=== PATIENT | male | born 1960 | race Caucasian/White ===

== ENCOUNTER 2019-05-14 12:45 | Inpatient (IN) | payer OTHER ==
[2019-05-14] MEDS ORDERED: SODIUM CHLORIDE 0.9% 500 ML 500 ML IV STA (13:24)
[2019-05-14 13:34] LABS: Basophils # (A) 0.2 k/uL (0-0.2); Basophils % (A) 2 %; Eosinophils # (A) 0.1 k/uL (0-0.7); Eosinophils % (A) 1 %; HCT 46.9 % (39.0-53.0); HGB 15.8 gm/dL (13.0-17.5); Lymphocytes % (A) 20 %; MCH 31.1 pg (25.0-35.0); MCHC 33.6 g/dL (31.0-37.0); MCV 92.6 fL (80.0-100.0); Mean Platelet Volume 8.2; Monocytes # (A) 0.6 k/uL (0-1.0); Monocytes % (A) 6 %; Neutrophils # (A) 7.2 k/uL (1.3-7.7); Neutrophils % (A) 70 %; Platelet Count 224 k/uL (150-450); RBC 5.07 m/uL (4.30-5.90); RDW 11.8 % (11.5-15.5); WBC 10.4 k/uL (3.8-10.6)
--- NOTE | 2019-05-14 13:40 | ED ---
General Adult HPI - General Chief complaint: Neuro Symptoms/Deficit Stated complaint: HTN Time Seen by Provider: 05/14/19 13:23 Source: patient Mode of arrival: ambulatory Limitations: no limitations - History of Present Illness Initial comments: Dictation was produced using [employer] dictation software. please excuse any grammatical, word or spelling errors. Chief Complaint: 59-year-old male with past mental history of hypertension presents with right facial weakness. History of Present Illness: Patient is a 59-year-old male presents with right facial weakness since 10 PM this morning. Patient was at the emergency dep artment by his for concerns of stroke. Patient has been having weakness to his entire right face including the eyebrows and eyelids. noted that his right eye was drooping along with right lip drooping. As no history of stroke. He has history of hypertension takes antihypertensive medications. Patient has no other complaints at this time. The ROS documented in this emergency department record has been reviewed and confirmed by me. Those systems with pertinent positive or negative responses have been documented in the HPI. All other systems are other negative and/or noncontributory. PHYSICAL EXAM: General Impression: Alert and oriented x3, not in acute distress HEENT: Normocephalic atraumatic, extra-ocular movements intact, pupils equal and reactive to light bilaterally, mucous membranes moist. Cardiovascular: Heart regular rate and rhythm, S1&S2 audible, no murmurs, rubs or gallops Chest: Lungs clear to auscultation bilaterally, no rhonchi, no wheeze, no rales Abdomen: Bowel sounds present, abdomen soft, non-tender, non-distended, no organomegaly Musculoskeletal: Pulses present and equal in all extremities, no peripheral edema Motor: no focal deficits noted Neurological: Right eyebrow weakness, weakness to resistance of shutting to the right eye. Right mouth droop. Skin: Intact with no visualized rashes Psych: Normal affect and mood ED course: 59-year-old male presents with clinical presentation consistent with Sabillon palsy. Upon arrival are within acceptable limits. CT was ordered. Radiology noted that there is subacute left watershed infarct in the posterior parieto-occipital region. Patient also has a mild punctate lacunar injury to the left caudate nucleus. Code stroke was paged. CT angio was ordered of the head and the neck. His class patient case with Dr. Bob will review patient CT films.Dr. Bob, the stroke doctor reviewed patient's films. He did not recommend TPA administration or neurovascular administration at this time. He does recommend aspirin, Plavix and Lipitor. Patient case was discussed with Dr. Irving of neurology. We only have neurology until [address] Gomez will determine if patient is appropriate for admission to our hospital. Dr. gomez evaluated patient and filling patient was amenable for admission to our hospital. Discussed patient case with Dr. Oswald is agreeable to accepting patients care. Patient given aspirin, Plavix and Lipitor. Patient's blood pressure is elevated however given history of stroke we will allow his blood pressure to remain elevated for the time being given that there is concern for possible perfusion issue. Patient started on Sabillon palsy medications including steroids, antivirals and corneal care. EKG interpretation: Ventricular rate 66, normal sinus rhythm,. Interval 152, QS 90, QTC 452. Nonspecific T wave changes in lead 3 and aVF overall this EKG is unremarkable. - Related Data Home Medications Medication Instructions Recorded Confirmed Meclizine [Antivert] 25 mg PO ONCE PRN 05/14/19 05/14/19 Metoprolol Succinate 200 mg PO DAILY 05/14/19 05/14/19 Valsartan/Hydrochlorothiazide 1 tab PO DAILY 05/14/19 05/14/19 [Valsartan-Hctz 160-25 mg Tab] Allergies Allergy/AdvReac Type Severity Reaction Status Date / Time No Known Allergies Allergy Verified 05/14/19 14:14 Review of Systems ROS Statement: Those systems with pertinent positive or pertinent negative responses have been documented in the HPI. ROS Other: All systems not noted in ROS Statement are negative. Past Medical History Past Medical History: Hypertension History of Any Multi-Drug Resistant Organisms: None Reported Past Surgical History: No Surgical Hx Reported Past Psychological History: No Psychological Hx Reported Smoking Status: Former smoker Past Alcohol Use History: Occasional Past Drug Use History: None Reported General Exam Limitations: no limitations Course Vital Signs 05/14/19 05/14/19 05/14/19 12:56 13:15 13:30 Temperature 98.2 F Pulse Rate 75 73 61 Respiratory 18 15 16 Rate Blood Pressure 204/100 208/106 204/108 O2 Sat by Pulse 95 Oximetry 05/14/19 05/14/19 05/14/19 14:00 14:15 14:30 Temperature Pulse Rate 69 84 Respiratory 15 17 Rate Blood Pressure 164/90 158/95 197/108 O2 Sat by Pulse 97 Oximetry Medical Decision Making - Lab Data Result diagrams: 05/14/19 13:20 05/14/19 13:20 Lab Results 05/14/19 05/14/19 05/14/19 Range/Units 13:20 13:20 13:20 WBC 10.4 (3.8-10.6) k/uL RBC 5.07 (4.30-5.90) m/uL Hgb 15.8 (13.0-17.5) gm/dL Hct 46.9 (39.0-53.0) % MCV 92.6 (80.0-100.0) fL MCH 31.1 (25.0-35.0) pg MCHC 33.6 (31.0-37.0) g/dL RDW 11.8 (11.5-15.5) % Plt Count 224 (150-450) k/uL Neutrophils % 70 % Lymphocytes % 20 % Monocytes % 6 % Eosinophils % 1 % Basophils % 2 % Neutrophils # 7.2 (1.3-7.7) k/uL Lymphocytes # 2.0 (1.0-4.8) k/uL Monocytes # 0.6 (0-1.0) k/uL Eosinophils # 0.1 (0-0.7) k/uL Basophils # 0.2 (0-0.2) k/uL PT 9.7 (9.0-12.0) sec INR 0.9 (<1.2) APTT 23.9 (22.0-30.0) sec Sodium 140 (137-145) mmol/L Potassium 4.2 (3.5-5.1) mmol/L Chloride 102 (98-107) mmol/L Carbon Dioxide 26 (22-30) mmol/L Anion Gap 12 mmol/L BUN 23 H (9-20) mg/dL Creatinine 0.69 (0.66-1.25) mg/dL Est GFR (CKD-EPI)AfAm >90 (>60 ml/min/1.73 sqM) Est GFR (CKD-EPI)NonAf >90 (>60 ml/min/1.73 sqM) Glucose 175 H (74-99) mg/dL Calcium 10.0 (8.4-10.2) mg/dL Total Bilirubin 0.7 (0.2-1.3) mg/dL AST 32 (17-59) U/L ALT 41 (21-72) U/L Alkaline Phosphatase 91 (38-126) U/L Troponin I (0.000-0.034) ng/mL Total Protein 8.3 H (6.3-8.2) g/dL Albumin 4.7 (3.5-5.0) g/dL 05/14/19 Range/Units 13:20 WBC (3.8-10.6) k/uL RBC (4.30-5.90) m/uL Hgb (13.0-17.5) gm/dL Hct (39.0-53.0) % MCV (80.0-100.0) fL MCH (25.0-35.0) pg MCHC (31.0-37.0) g/dL RDW (11.5-15.5) % Plt Count (150-450) k/uL Neutrophils % % Lymphocytes % % Monocytes % % Eosinophils % % Basophils % % Neutrophils # (1.3-7.7) k/uL Lymphocytes # (1.0-4.8) k/uL Monocytes # (0-1.0) k/uL Eosinophils # (0-0.7) k/uL Basophils # (0-0.2) k/uL PT (9.0-12.0) sec INR (<1.2) APTT (22.0-30.0) sec Sodium (137-145) mmol/L Potassium (3.5-5.1) mmol/L Chloride (98-107) mmol/L Carbon Dioxide (22-30) mmol/L Anion Gap mmol/L BUN (9-20) mg/dL Creatinine (0.66-1.25) mg/dL Est GFR (CKD-EPI)AfAm (>60 ml/min/1.73 sqM) Est GFR (CKD-EPI)NonAf (>60 ml/min/1.73 sqM) Glucose (74-99) mg/dL Calcium (8.4-10.2) mg/dL Total Bilirubin (0.2-1.3) mg/dL AST (17-59) U/L ALT (21-72) U/L Alkaline Phosphatase (38-126) U/L Troponin I <0.012 (0.000-0.034) ng/mL Total Protein (6.3-8.2) g/dL Albumin (3.5-5.0) g/dL Disposition Clinical Impression: Abnormal CT of brain, Sabillon palsy Disposition: ADMITTED IP TO THIS HOSP Condition: Fair Referrals: Abdirizak Fung MD [Primary Care Provider] - 1-2 days Decision Time: 15:06
[2019-05-14 13:49] LABS: ALT 41 U/L (21-72); AST 32 U/L (17-59); African American GFR (CKD) >90 (>60 ml/min/1.73 sqM); Albumin 4.7 g/dL (3.5-5.0); Alkaline Phosphatase 91 U/L (38-126); Anion Gap 12 mmol/L; Blood Urea Nitrogen 23 mg/dL (9-20); Carbon Dioxide 26 mmol/L (22-30); Chloride 102 mmol/L (98-107); Glucose 175 mg/dL (74-99); Potassium 4.2 mmol/L (3.5-5.1); Sodium 140 mmol/L (137-145); Total Bilirubin 0.7 mg/dL (0.2-1.3); Total Protein 8.3 g/dL (6.3-8.2)
--- NOTE | 2019-05-14 13:52 | CT ---
EXAMINATION TYPE: CT brain wo con DATE OF EXAM: 05/14/2019 COMPARISON: None HISTORY: HTN, Facial droop right side, acute stroke suspected CT DLP: 1111.4 mGycm Automated exposure control for dose reduction was used. TECHNIQUE: CT scan of the head is performed without contrast. FINDINGS: Focal area of hypoattenuation is seen in the watershed zone in the parietal-occipital riki on. There is blurring of the franz-white junction. Early punctate calcifications are seen within the l eft caudate nucleus head. There is no acute intracranial hemorrhage or midline shift identified. Ther e is diffuse ventricular and sulcal prominence consistent with diffuse age-related cerebral atrophy. Old punctate lacunar injury is seen in the left head of the caudate nucleus. The globes are intact. There is mild leftward nasal septal deviation. Scant mucosal thickening is seen within the right maxi llary sinus. Remaining paranasal sinuses and mastoid air cells are well aerated. IMPRESSION: Left watershed infarct in the posterior parietal-occipital region appears subacute by CT. MRI could further assess timing. Old punctate lacunar injury is seen of the left caudate nucleus. Mi ld diffuse age-related cerebral atrophy.
--- NOTE | 2019-05-14 13:54 | XR ---
EXAMINATION TYPE: XR chest 2V DATE OF EXAM: 05/14/2019 COMPARISON: NONE HISTORY: Altered mental status, right facial droop TECHNIQUE: Frontal and lateral views of the chest are obtained. FINDINGS: There are overlying cardiac leads and the patient is rotated. There is no focal air space opacity, pleural effusion, or pneumothorax seen. The cardiac silhouette size is within normal limits . The osseous structures are intact. There is thoracic spondylosis. Right hemidiaphragm is elevated . IMPRESSION: No acute cardiopulmonary process. Elevated right hemidiaphragm.
[2019-05-14 13:58] LABS: INR 0.9 (<1.2); Partial Thromboplastin Time 23.9 sec (22.0-30.0); Prothrombin Time 9.7 sec (9.0-12.0)
[2019-05-14] MEDS ORDERED: ATORVASTATIN 40 MG TAB PO STA (14:26)
[2019-05-14] MEDS ORDERED: ASPIRIN 81 MG PO STA (14:26)
[2019-05-14] MEDS ORDERED: CLOPIDOGREL 75 MG TAB PO STA (14:26)
[2019-05-14] MEDS ORDERED: ARTIFICIAL TEARS-HYPROMELLOSE DROPS 15 ML BTL RIGHT EYE PRN (15:07)
[2019-05-14] MEDS ORDERED: predniSONE 20 MG TAB PO STA (15:08)
--- NOTE | 2019-05-14 15:12 | CT ---
EXAMINATION TYPE: CT angio head neck DATE OF EXAM: 05/14/2019 HISTORY: abnormal CT. Acute stroke suspected. Acute onset neurologic deficit. COMPARISON: CT brain earlier today CT DLP: 1042.8 mGycm. Automated Exposure Control for Dose Reduction was Utilized. TECHNIQUE: CTA scan of the head and neck performed with IV Contrast, patient injected with 65 mL of Isovue 370, axial images are obtained, coronal and sagittal reformatted images are reviewed. Three-D reconstructed images are created on an independent workstation and reviewed. FINDINGS: Carotid/Vascular Structures: Mild peripheral plaque in the aortic arch. Normal three-vessel origin fr om March without significant stenosis. Normal origin right brachiocephalic artery right common caroti d artery. Mild to moderate peripheral calcified plaque in the right carotid bulb extending into proxi mal internal carotid artery without significant stenosis. Patent right external carotid artery withou t significant plaque or stenosis. More severe focal plaque left carotid bulb extending into the proximal internal and external carotid arteries without stenosis greater than 50% clearly seen in the external carotid artery. Suboptimal du e to marked calcified plaque and poor bolus at this level. I suspect significant stenosis proximal in ternal carotid artery at its origin. Review of Griffiths postprocessing suboptimal as there is signifi cant artifact of uncertain etiology. Codominant vertebrobasilar system. Vertebral arteries are patent to basilar junction. No significant focal stenosis or aneurysmal change is seen. There are patent bilateral posterior communicating arter ies . There is patent anterior communicating artery. There is no significant focal stenosis or aneurysmal c hange in the anterior circulation. Other: Few prominent but subcentimeter upper thoracic lymph nodes. Redemonstration of possible subacu te left posterior watershed infarct. [id number] multilevel spurring in the cervical spine. IMPRESSION: 1. More prominent plaque left carotid bulb with suspected significant stenosis at origin left interna l carotid artery cannot be further characterized due to artifact and prominent calcified plaque. Furt her investigation with direct catheter angiogram is advised to better evaluate and possibly treat. 2. No aneurysmal change or significant focal stenosis at level of [place] of [place]. Results communicated to ordering ER physician via telephone at time of dictation.
--- NOTE | 2019-05-14 15:26 | P.CNNES ---
History of Present Illness Consult date: 05/14/19 Requesting physician: Milan Bridges Reason for Consult: Abnormal CT head History of Present Illness: Patient is a 59-year-old male who has history of hypertension, was at work at 11 AM and he noticed his right side of the face was droopy. He talked to his , who checked the blood pressure, which was 230/120. She got concerned and brought him that a hospital. Patient arrived to the hospital at 12:45 PM. Patient had chest x-ray which revealed no acute process. Elevated right hemidiaphragm. His computed tomography scan of the head, showed left watershed infarct of the posterior parietal occipital region, appears subacute by CT. MRI could further assess. Old punctate lacunar injury is seen of the left caudate nucleus. Mild age-related cerebral atrophy. Stroke neurologist store operations associate Dr Bob was contacted by ED staff. Patient was considered not a candidate for TPA due to presence of abnormal CT head and minimal NIHSS. Patient was recommended aspirin, Plavix and Lipitor. Patient had CTA of head and neck, which revealed more prominent plaque left carotid bulb with suspected significant stenosis at the origin of left ICA cannot be further characterized due to artifact and prominent calcified plaque. Further investigation with direct catheter angiogram is advised to better evaluate and possibly treat. No aneurysmal change or significant focal stenosis at the level of [place]. EKG showed normal sinus rhythm with nonspecific T-wave abnormality. Patient's blood test shows normal CBC, PT/PTT, Chem-7. Patient denies any symptoms of stroke prior to 11 AM as described. He denies any headache, neck injury, diabetes. He has hypertension. He does not know about status of cholesterol. Patient states he started smoking at his age 29. By the time he quit at age 49, he was smoking up to 2 packs per day. He denies any alcohol. Patient denies any previous history of strokes or TIA. Review of Systems As above. Otherwise completely unremarkable. Patient is healthy. Past Medical History Past Medical History: Hypertension History of Any Multi-Drug Resistant Organisms: None Reported Past Surgical History: No Surgical Hx Reported Past Psychological History: No Psychological Hx Reported Smoking Status: Former smoker Past Alcohol Use History: Occasional Past Drug Use History: None Reported Medications and Allergies Home Medications Medication Instructions Recorded Confirmed Type Meclizine [Antivert] 25 mg PO ONCE PRN 05/14/19 05/14/19 History Metoprolol Succinate 200 mg PO DAILY 05/14/19 05/14/19 History Valsartan/Hydrochlorothiazide 1 tab PO DAILY 05/14/19 05/14/19 History [Valsartan-Hctz 160-25 mg Tab] Allergies Allergy/AdvReac Type Severity Reaction Status Date / Time No Known Allergies Allergy Verified 05/14/19 14:14 Physical Examination - Vital Signs Vital Signs: Vital Signs Temp Pulse Resp BP Pulse Ox 05/14/19 14:30 84 17 197/108 97 05/14/19 14:15 158/95 05/14/19 14:00 69 15 164/90 05/14/19 13:30 61 16 204/108 05/14/19 13:15 73 15 208/106 05/14/19 12:56 98.2 F 75 18 204/100 95 Intake and Output 05/14/19 05/14/19 05/14/19 06:59 14:59 22:59 Other: Weight 121.109 kg On examination patient is a late middle aged male, in no distress. He is alert and awake fully oriented. His speech and language functions are normal. Mild dysarthria due to right facial weakness. On cranial nerve examination his pupils are round and reactive to light, visual zelaya are full on confrontation. No visual or sensory neglect on double simultaneous stimulation. Extraocular muscles are intact with no nystagmus. His gaze is slightly more easily abducted on the left as compared to the right although has no gaze palsy. He has right facial weakness, almost appears peripheral type with involvement of upper and lower part of the right side of face. His right forehead appears mildly spared. Tongue protrudes to the midline. Palatal elevation and sensation normal. On muscle strength testing there is no pronator drift and the strength is normal in arms and legs distally and proximally. There is no ataxia. Fine motor is normal bilaterally. Reflexes are diminished and plantars downgoing. Sensory to touch is equal with no neglect. Gait deferred. Results - Laboratory Findings CBC and BMP: 05/14/19 13:20 05/14/19 13:20 Abnormal Lab Findings: Abnormal Labs 05/14/19 13:20 BUN 23 H Glucose 175 H Total Protein 8.3 H Assessment and Plan Assessment: * 59-year-old male with hypertension, presented with acute onset of right facial weakness. Symptoms are somewhat suggestive of peripheral right facial weakne ss, however computed tomography scan of the head was abnormal with evidence of subacute stroke involving the left posterior parietal occipital region. CT suggestive of possible subacute infarct, although his symptoms started at 11 AM today. Patient was not a candidate for TPA, due to abnormal computed tomography scan of head and low NIH stroke scale of 2. * Hypertension Plan: * Patient will be started on aspirin 81 mg, Plavix 75 mg. * MRI of the brain to evaluate for an acute stroke. * Vascular surgical consultation for left ICA stenosis. * Fasting lipid panel, hemoglobin A1c. * Neurology coverage not available on the weekend. * Thank you very much for allowing me to participate in care of your patient.
[2019-05-14 16:33] LABS: Cholesterol 225 mg/dL (<200); HDL Cholesterol 46 mg/dL (40-60); LDL Cholesterol,Calculated 138 mg/dL (0-99); Triglycerides 207 mg/dL (<150)
[2019-05-14] MEDS ORDERED: MECLIZINE 25 MG TAB PO PRN (16:40)
--- NOTE | 2019-05-14 16:40 | P.HPIM ---
History of Present Illness H&P Date: 05/14/19 Chief Complaint: Facial drooling This is 59-year-old white male who reported to the emergency room because of right facial drooping that started around 6 AM. He was at work when it started. One of his family members noticed that and asked patient to report to the emergency room. Patient denies any dizziness, no headache, no loss of consciousness, no abdominal pain. He denies any focal or generalized weakness. He reported to the emergency room and was evaluated by neurology. At the time of examination patient is in bed, he denies any distress, he denies any symptom s. He also denies any previous presentations. Review of Systems 10 systems reviewed, pertinent positive and negative findings as in HPI, no chest pain no abdominal pain. Past Medical History Past Medical History: Hypertension History of Any Multi-Drug Resistant Organisms: None Reported Past Surgical History: No Surgical Hx Reported Past Psychological History: No Psychological Hx Reported Smoking Status: Former smoker Past Alcohol Use History: Occasional Past Drug Use History: None Reported Medications and Allergies Home Medications Medication Instructions Recorded Confirmed Type Meclizine [Antivert] 25 mg PO ONCE PRN 05/14/19 05/14/19 History Metoprolol Succinate 200 mg PO DAILY 05/14/19 05/14/19 History Valsartan/Hydrochlorothiazide 1 tab PO DAILY 05/14/19 05/14/19 History [Valsartan-Hctz 160-25 mg Tab] Allergies Allergy/AdvReac Type Severity Reaction Status Date / Time No Known Allergies Allergy Verified 05/14/19 14:14 Physical Exam Vitals: Vital Signs Temp Pulse Resp BP Pulse Ox 05/14/19 14:30 84 17 197/108 97 05/14/19 14:15 158/95 05/14/19 14:00 69 15 164/90 05/14/19 13:30 61 16 204/108 05/14/19 13:15 73 15 208/106 05/14/19 12:56 98.2 F 75 18 204/100 95 Intake and Output 05/14/19 05/14/19 05/14/19 06:59 14:59 22:59 Other: Weight 121.109 kg Constitutional: No acute distress, conversant, pleasant Eyes: Anicteric sclerae ENMT: NC/AT, right facial weakness Neck:Supple, FROM, no masses, or JVD, No carotid bruits; No thyromegaly Lungs: Clear to auscultation, Clear to percussion, Normal respiratory effort, no accessory muscle use Cardiovascular: Heart regular in rate and rhythm, No murmurs, gallops, or rubs no peripheral edema Abdominal: Soft Nontender, nom distended, no guarding, no rebound or rigidity Skin: Normal temperature, tone, texture, turgor Extremities:No digital cyanosis No clubbing, Pedal pulses intact and symmetrical Radial pulses intact and symmetrical Normal gait and station, No calf tenderness Psychiatric: Alert and oriented to person, place and time, Appropriate affect Intact judgement Neuro: Muscles Strength 5/5 in all 4 extremities, Sensation to light touch grossly present throughout, Cranial nerves II-XII grossly intact. No focal sensory deficits Results CBC & Chem 7: 05/14/19 13:20 05/14/19 13:20 Labs: Abnormal Lab Results - Last 24 Hours (Table) 05/14/19 Range/Units 13:20 BUN 23 H (9-20) mg/dL Glucose 175 H (74-99) mg/dL Total Protein 8.3 H (6.3-8.2) g/dL Assessment and Plan Plan: Assessment/Plan: * Acute onset of right facial weakness. CT subacute stroke involving the left posterior parietal occipital region. CT suggestive of possible subacute infarct, not a candidate for TPA,appreciate neurology input , started asa statin and plavix . Vascular surgical consultation for left ICA stenosis. Brain MRI. * Hypertension, essential , not well controlled , continue outpatient medications valsartan/hydrochlorothiazide and metoprolol. * Suspected obstructive sleep apnea: He will need sleep study as an outpatient * Obesity: BMI 38.3, counseled * DVT prophylaxis: Lovenox * Disposition: Home in 1-2 days * Treatment plan discussed with the patient and his at bedside
[2019-05-14 17:07] VITALS: RESP 18
[2019-05-14] MEDS: SODIUM CHLORIDE 0.9% 1,000 ML IV SCH (17:29)
--- NOTE | 2019-05-14 17:34 | ECHOF ---
Referral Reason:CVA MEASUREMENTS -------- HEIGHT: 177.8 cm WEIGHT: 121.1 kg BP: RVIDd: 3.6 cm (< 3.3) IVSd: 1.3 cm (0.6 - 1.1) LVIDd: 4.5 cm (3.9 - 5.3) LVPWd: 1.3 cm (0.6 - 1.1) IVSs: 1.9 cm LVIDs: 2.6 cm LVPWs: 2.1 cm LA Diam: 3.8 cm (2.7 - 3.8) Ao Diam: 3.2 cm (2.0 - 3.7) AV Cusp: 2.1 cm (1.5 - 2.6) MV EXCURSION: 22.646 mm (> 18.000) MV EF SLOPE: 132 mm/s (70 - 150) EPSS: 0.5 cm MV E Moris: 1.01 m/s MV DecT: 198 ms MV A Moris: 0.86 m/s MV E/A Ratio: 1.18 RAP: 5.00 mmHg RVSP: 33.21 mmHg TAPSE: 23.95 mm FINDINGS -------- Sinus rhythm. This was a technically adequate study. The left ventricular size is normal. There is mild concentric left ventricular hypertrophy. Overa ll left ventricular systolic function is normal with, an EF between 55 - 60 %. The diastolic fillin g pattern is normal for the age of the patient 14.94. The right ventricle is mildly enlarged. The left atrial size is normal. The right atrial size is normal. Contrast study was performed with 1 iv injection of 8 ccs of agitated normal saline at rest. Poor paras ge no bubble visulize There is mild aortic valve sclerosis. Trace amount of aortic regurgitation. Mild mitral annular calcification present. Mild mitral regurgitation is present. The tricuspid valve appears structurally normal. Mild tricuspid regurgitation present. Right vent ricular systolic pressure is normal at < 35 mmHg. Trace/mild (physiologic) pulmonic regurgitation. The aortic root size is normal. IVC Not well visulized. There is no pericardial effusion. CONCLUSIONS -------- 1. Sinus rhythm. 2. This was a technically adequate study. 3. The left ventricular size is normal. 4. There is mild concentric left ventricular hypertrophy. 5. Overall left ventricular systolic function is normal with, an EF between 55 - 60 %. 6. The diastolic filling pattern is normal for the age of the patient 14.94 7. The right ventricle is mildly enlarged. 8. The left atrial size is normal. 9. Contrast study was performed with 1 iv injection of 8 ccs of agitated normal saline at rest. Poor image no bubble visulize 10. There is mild aortic valve sclerosis. 11. Trace amount of aortic regurgitation. 12. Mild mitral annular calcification present. 13. Mild mitral regurgitation is present. 14. Mild tricuspid regurgitation present. 15. Right ventricular systolic pressure is normal at < 35 mmHg. 16. Trace/mild (physiologic) pulmonic regurgitation. 17. The aortic root size is normal. 18. IVC Not well visulized. 19. There is no pericardial effusion. CROWN CERAMIST: Rowan Valero RDCS
[2019-05-14] MEDS: valACYclovir 500 MG TAB PO SCH ×2 (17:46→20:59)
[2019-05-15 01:13] LABS: Hemoglobin A1C 7.9 % (4.0-6.0)
[2019-05-15 07:32] LABS: Basophils % (A) 0 %; Eosinophils % (A) 0 %; HCT 47.2 % (39.0-53.0); HGB 15.8 gm/dL (13.0-17.5); Lymphocytes # (A) 1.2 k/uL (1.0-4.8); Lymphocytes % (A) 13 %; MCH 31.6 pg (25.0-35.0); MCHC 33.5 g/dL (31.0-37.0); MCV 94.2 fL (80.0-100.0); Mean Platelet Volume 8.1; Monocytes # (A) 0.5 k/uL (0-1.0); Monocytes % (A) 5 %; Neutrophils # (A) 7.8 k/uL (1.3-7.7); Neutrophils % (A) 81 %; Platelet Count 224 k/uL (150-450); RBC 5.01 m/uL (4.30-5.90); RDW 11.9 % (11.5-15.5); WBC 9.7 k/uL (3.8-10.6)
[2019-05-15 08:11] LABS: ALT 38 U/L (21-72); AST 21 U/L (17-59); African American GFR (CKD) >90 (>60 ml/min/1.73 sqM); Albumin 4.3 g/dL (3.5-5.0); Alkaline Phosphatase 70 U/L (38-126); Anion Gap 10 mmol/L; Blood Urea Nitrogen 16 mg/dL (9-20); Calcium 9.5 mg/dL (8.4-10.2); Carbon Dioxide 28 mmol/L (22-30); Chloride 103 mmol/L (98-107); Cholesterol 213 mg/dL (<200); Glucose 213 mg/dL (74-99); HDL Cholesterol 50 mg/dL (40-60); LDL Cholesterol,Calculated 143 mg/dL (0-99); Potassium 4.4 mmol/L (3.5-5.1); Sodium 141 mmol/L (137-145); Total Bilirubin 0.6 mg/dL (0.2-1.3); Total Protein 7.3 g/dL (6.3-8.2); Triglycerides 99 mg/dL (<150)
[2019-05-15] MEDS: HYDROCHLOROTHIAZIDE 25 MG TAB PO SCH (08:58)
[2019-05-15] MEDS: VALSARTAN 160 MG TAB PO SCH (08:58)
[2019-05-15] MEDS: ASPIRIN 325 MG TAB PO SCH (08:58)
[2019-05-15] MEDS: ATORVASTATIN 40 MG TAB PO SCH (08:58)
[2019-05-15] MEDS: ENOXAPARIN 40 MG/0.4 ML SYRINGE SQ SCH (08:58)
[2019-05-15] MEDS: METOPROLOL SUCCINATE (ER) 100 MG TAB.ER.24H PO SCH (08:58)
[2019-05-15] MEDS: valACYclovir 500 MG TAB PO SCH ×3 (08:59→20:29)
--- NOTE | 2019-05-15 09:47 | P.PN ---
Subjective Progress Note Date: 05/15/19 Principal diagnosis: CVA Patient was seen and examined. No acute events overnight. Patient reports right-sided facial droop that is slowly improving. He denies any chest pain, shortness of breath or palpitations. No nausea vomiting. No fever or chills. He denies any numbness/weakness lasting of the extremities. He denies any difficulty speaking or thinking. He denies any difficulty swallowing. Objective - Vital Signs Vital signs: Vital Signs Temp 97.6 F 05/15/19 04:00 Pulse 82 05/15/19 04:00 Resp 18 05/15/19 04:00 BP 133/81 05/15/19 04:00 Pulse Ox 95 05/15/19 04:00 Intake & Output 05/14/19 05/15/19 05/15/19 18:59 06:59 18:59 Intake Total 240 360 Balance 240 360 Weight 119.7 kg 121 kg Intake: Oral 240 360 Other: Voiding Method Toilet Toilet # Voids 2 - Exam General: [non toxic], [no distress], [appears at stated age] Derm: [warm], [dry] Head: [atraumatic], [normocephalic], [symmetric] Eyes: [EOMI], [no lid lag], [anicteric sclera] Mouth: [no lip lesion], [mucus membranes moist] Cardiovascular: [S1S2 reg], [no murmur], [positive DP pulse bilateral], Lungs: [CTA bilateral], [no rhonchi, no rales] , [no accessory muscle use] Abdominal: [soft], [ nontender to palpation], [no guarding], [no appreciable organomegaly] Ext: [no gross muscle atrophy], [no edema], [no contractures] Neuro: [ CN II-XI grossly intact except right-sided facial droop and difficulty closing right eye, unable to wrinkle right forehead], [no focal neuro deficits] Psych: [Alert], [oriented], [appropriate affect] - Labs CBC & Chem 7: 05/15/19 06:38 05/15/19 06:38 Labs: Abnormal Lab Results - Last 24 Hours (Table) 05/14/19 05/14/19 05/14/19 Range/Units 13:20 16:20 16:20 Neutrophils # (1.3-7.7) k/uL BUN 23 H (9-20) mg/dL Creatinine (0.66-1.25) mg/dL Glucose 175 H (74-99) mg/dL Hemoglobin A1c 7.9 H (4.0-6.0) % Total Protein 8.3 H (6.3-8.2) g/dL Triglycerides 207 H (<150) mg/dL Cholesterol 225 H (<200) mg/dL LDL Cholesterol, Calc 138 H (0-99) mg/dL 05/15/19 05/15/19 Range/Units 06:38 06:38 Neutrophils # 7.8 H (1.3-7.7) k/uL BUN (9-20) mg/dL Creatinine 0.63 L (0.66-1.25) mg/dL Glucose 213 H (74-99) mg/dL Hemoglobin A1c (4.0-6.0) % Total Protein (6.3-8.2) g/dL Triglycerides (<150) mg/dL Cholesterol 213 H (<200) mg/dL LDL Cholesterol, Calc 143 H (0-99) mg/dL Assessment and Plan Assessment: 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 CT shows subacute CVA in the left posterior parieto-occipital lobe. Neurology consulted, recommends CVA workup. CTA head and neck shows significant stenosis of the left internal carotid. Echocardiogram shows EF 55-60% with mild concentric LVH. Plans: Start aspirin and Lipitor. Needs MRI brain but unavailable over the weekend. Patient started on valacyclovir for treatment of Sabillon's palsy, will continue 4 more days of prednisone 50 mg by mouth. Follow PT/OT and ST recommendations. Telemetry monitoring. Advance to neurochecks. Follow neurology recommendations. As seen on CT head. Plans: Management as above. As seen on CTA head and neck. Plans: Follow vascular surgery consultation. BP 133/81. Plans: Continue metoprolol. Continue valsartan. Monitor vitals, a djust medications as necessary. BMI 38.3. Plans: Structured weight loss program. Lipid panel shows total cholesterol 225 with LDL of 138. Plans: Continue Lipitor. [Patient admitted for right-sided facial droop, likely Sabillon's palsy but subacute CVA seen on CT head. Stroke workup underway. Vascular surgery consulted for carotid stenosis. Likely DC in 1-2 days.]
[2019-05-15] MEDS: predniSONE 50 MG TAB PO SCH (11:25)
[2019-05-15] MEDS: SODIUM CHLORIDE 0.9% 1,000 ML IV SCH (12:48)
--- NOTE | 2019-05-15 13:02 | P.CON ---
Consult Note - . Consult date: 05/15/19 Assessment/Plan:: Patient is a 59-year-old male who is admitted to the hospital after family members noted a facial droop and an eyelid droop, both right sided. The patient did notany significant issues. He denied any associated symptoms such as amauro sis fugax, upper her lower extremity motor or sensory deficit. He did undergo imaging which demonstrates findings of a subacute left posterior parietal occipital infarct. Patient denies any previous cerebrovascular accident. He denies any claudication type symptoms and has no history of any significant cardiac disease. Social history significant for approximate [id number] tobacco use history although the patient stopped smoking within the past few years. ALLERGIES: patient has NO KNOWN DRUG ALLERGIES. Past surgical history: Patient denies any previous surgical history Past medical history: Hypertension. My evaluation today revealed the patient to be sitting as bed eating lunch, awake alert and in no apparent distress. Right eyelid and a left facial droop is noted. Tongue was essentially midline. Equal motor strength was noted in the upper extremities. Heart: Was regular without murmur. Neck: Soft without adenopathy or bruit. Lungs: Clear to auscultation bilaterally. Abdomen: Soft/protuberant with normol active bowel sounds. No palpable masses nor tenderness to palpation noted. Review of CAT scan of the brain demonstrates a subacute left occipital/parietal infarct. CT of the carotids was performed which demonstrates suspicion of left ICA stenosis. Degree of stenosis cannot be accurately ascertained due to calcific were followed to the plaque. Review of laboratory values demonstrates a generally increased glucose levels and evidence of dyslipidemia. Impression: #1: Suspicion of hemodynamically severe left ICA stenosis. #2: History of tobacco abuse. #3: Elevated glucose levels, possibly representing previously undiagnosed diabetes mellitus. #4: History of hypertension. Plan: #1: I have taken the liberty of ordering a carotid duplex. #2: Further recommendations pending results of carotid duplex. #3:
--- NOTE | 2019-05-15 16:39 | US ---
EXAMINATION TYPE: US carotid duplex BILAT DATE OF EXAM: 05/15/2019 COMPARISON: NONE CLINICAL HISTORY: carotid stenosis. Carotid stenosis. Abnormal CT EXAM MEASUREMENTS: RIGHT: Peak Systolic Velocity (PSV) cm/sec ----- Right CCA: 48.1 ----- Right ICA: 62.5 ----- Right ECA: 63.8 ICA/CCA ratio: 1.3 RIGHT: End Diastole cm/sec ----- Right CCA: 11.6 ----- Right ICA: 20.7 ----- Right ECA: 12.9 LEFT: Peak Systolic Velocity (PSV) cm/sec ----- Left CCA: 64.4 ----- Left ICA: 101.6 ----- Left ECA: 93.5 ICA/CCA ratio: 1.6 LEFT: End Diastole cm/sec ----- Left CCA: 14.4 ----- Left ICA: 37.0 ----- Left ECA: 14.4 VERTEBRALS (direction of flow): Right Vertebral: Antegrade Left Vertebral: Antegrade Rhythm: Normal Bilateral plaque in the bulbs and Lt ICA. No significant stenosis seen IMPRESSION: There is antegrade flow in the vertebral arteries. The images and measurements suggest 3 0-40% stenosis in both internal carotid arteries. Criteria for Assigning % of Stenosis / Diameter reduction (Estimation based on the indirect measurements of the internal carotid artery velocities (ICA PSV). 1. Normal (no stenosis)=ICA PSV < 125 cm/s: ratio < 2.0: ICA EDV<40 cm/s. 2. Less than 50% stenosis=ICA PSV < 125 cm/s: ratio < 2.0: ICA EDV<40 cm/s. 3. 50 to 69% stenosis=ICA PSV of 125 to 230 cm/s: ration 2.0 ? 4.0: ICA EDV 40-100 cm/s. 4. Greater than 70% stenosis to near occlusion= ICA PSV > 230 cm/s: ratio > 4.0: ICA EDV > 100 cm/s. 5. Near occlusion= ICA PSV velocities may be low or undetectable: variable ratio and ICA EDV. 6. Total occlusion=unable to detect flow.
[2019-05-15] MEDS: ERYTHROMYCIN 5 MG/GM OPHTH OINT 1 GM TUBE RIGHT EYE SCH (20:30)
[2019-05-16 06:46] LABS: Basophils % (A) 0 %; Eosinophils # (A) 0.1 k/uL (0-0.7); Eosinophils % (A) 0 %; HCT 46.4 % (39.0-53.0); HGB 15.7 gm/dL (13.0-17.5); Lymphocytes # (A) 3.1 k/uL (1.0-4.8); Lymphocytes % (A) 27 %; MCHC 33.9 g/dL (31.0-37.0); MCV 94.3 fL (80.0-100.0); Mean Platelet Volume 8.1; Monocytes # (A) 0.8 k/uL (0-1.0); Monocytes % (A) 7 %; Neutrophils # (A) 7.2 k/uL (1.3-7.7); Neutrophils % (A) 64 %; Platelet Count 215 k/uL (150-450); RBC 4.91 m/uL (4.30-5.90); WBC 11.4 k/uL (3.8-10.6)
[2019-05-16 06:55] LABS: ALT 37 U/L (21-72); AST 21 U/L (17-59); African American GFR (CKD) >90 (>60 ml/min/1.73 sqM); Albumin 3.9 g/dL (3.5-5.0); Alkaline Phosphatase 65 U/L (38-126); Anion Gap 7 mmol/L; Blood Urea Nitrogen 17 mg/dL (9-20); Calcium 9.3 mg/dL (8.4-10.2); Carbon Dioxide 33 mmol/L (22-30); Chloride 103 mmol/L (98-107); Glucose 160 mg/dL (74-99); Potassium 4.1 mmol/L (3.5-5.1); Sodium 143 mmol/L (137-145); Total Bilirubin 0.5 mg/dL (0.2-1.3); Total Protein 6.8 g/dL (6.3-8.2)
[2019-05-16] MEDS: ATORVASTATIN 40 MG TAB PO SCH (08:26)
[2019-05-16] MEDS: ASPIRIN 325 MG TAB PO SCH (08:26)
[2019-05-16] MEDS: valACYclovir 500 MG TAB PO SCH (08:27)
[2019-05-16] MEDS: HYDROCHLOROTHIAZIDE 25 MG TAB PO SCH (08:27)
[2019-05-16] MEDS: VALSARTAN 160 MG TAB PO SCH (08:27)
[2019-05-16] MEDS: ENOXAPARIN 40 MG/0.4 ML SYRINGE SQ SCH ×2 (08:27→10:14)
[2019-05-16] MEDS: METOPROLOL SUCCINATE (ER) 100 MG TAB.ER.24H PO SCH (08:27)
[2019-05-16] MEDS: predniSONE 50 MG TAB PO SCH (08:27)
--- NOTE | 2019-05-16 10:43 | P.PN ---
Subjective Progress Note Date: 05/16/19 Principal diagnosis: CVA Patient was seen and examined. No acute events overnight. Patient reports right-sided facial droop that is slowly improving. He also complains of diffi culties in closing his eyes. Problems have not changed much since yesterday. He denies any chest pain, shortness of breath or palpitations. No nausea vomiting. No fever or chills. He denies any numbness/weakness lasting of the extremities. He denies any difficulty speaking or thinking. He denies any difficulty swallowing. Objective - Vital Signs Vital signs: Vital Signs Temp 97.9 F 05/16/19 08:00 Pulse 73 05/16/19 08:00 Resp 18 05/16/19 08:00 BP 163/84 05/16/19 10:01 Pulse Ox 96 05/16/19 08:00 Intake & Output 05/15/19 05/16/19 05/16/19 18:59 06:59 18:59 Intake Total 1090 240 Balance 1090 240 Weight 119.1 kg Intake: IV 10 0.9 10 Oral 1080 240 Other: Voiding Method Toilet # Voids 1 - Exam General: [non toxic], [no distress], [appears at stated age] Derm: [warm], [dry] Head: [atraumatic], [normocephalic], [symmetric] Eyes: [EOMI], [no lid lag], [anicteric sclera] Mouth: [no lip lesion], [mucus membranes moist] Cardiovascular: [S1S2 reg], [no murmur], [positive DP pulse bilateral], Lungs: [CTA bilateral], [no rhonchi, no rales] , [no accessory muscle use] Abdominal: [soft], [ nontender to palpation], [no guarding], [no appreciable organomegaly] Ext: [no gross muscle atrophy], [no edema], [no contractures] Neuro: [ CN II-XI grossly intact except right-sided facial droop and difficulty closing right eye, unable to wrinkle right forehead], [no focal neuro deficits] Psych: [Alert], [oriented], [appropriate affect] - Labs CBC & Chem 7: 05/16/19 06:08 05/16/19 06:08 Labs: Abnormal Lab Results - Last 24 Hours (Table) 05/16/19 05/16/19 Range/Units 06:08 06:08 WBC 11.4 H (3.8-10.6) k/uL Carbon Dioxide 33 H (22-30) mmol/L Glucose 160 H (74-99) mg/dL Assessment and Plan Assessment: 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 CT shows subacute CVA in the left posterior parieto-occipital lobe. Neurology consulted, recommends CVA workup. CTA head and neck shows significant stenosis of the left internal carotid. Echocardiogram shows EF 55-60% with mild concentric LVH. Plans: Start aspirin and Lipitor. Needs MRI brain but unavailable over the weekend. Patient is PT cleared. Patient started on valacyclovir for treatment of Sabillon's palsy, will continue 4 more days of prednisone 50 mg by mouth. Follow OT and ST recommendations. Telemetry monitoring. Advance to neurochecks. Follow neurology recommendations. As seen on CT head. Plans: Management as above. As seen on CTA head and neck. Carotid duplex shows 30-40% stenosis. Plans: Follow vascular surgery consultation. BP 163/84. Plans: Continue metoprolol. Continue valsartan. Monitor vitals, adjust medications as necessary. BMI 37.7. Plans: Structured weight loss program. Lipid panel shows total cholesterol 225 with LDL of 138. Plans: Continue Lipitor. [Patient admitted for right-sided facial droop, likely Sabillon's palsy but subacute CVA seen on CT head. Stroke workup underway. Vascular surgery consulted for carotid stenosis. Likely DC tomorrow.]
[2019-05-16] MEDS: SODIUM CHLORIDE 0.9% 1,000 ML IV SCH (15:58)
[2019-05-16] MEDS: valACYclovir HCL 1,000 MG TABLET PO SCH ×2 (16:15→21:08)
[2019-05-16] MEDS: hydrALAZINE HCL 25 MG TAB PO SCH ×2 (16:15→21:07)
[2019-05-16] MEDS: ERYTHROMYCIN 5 MG/GM OPHTH OINT 1 GM TUBE RIGHT EYE SCH (21:07)
[2019-05-17] MEDS ORDERED: hydrALAZINE HCL 50 MG TAB PO STA (04:30)
[2019-05-17 07:09] LABS: Basophils # (A) 0.1 k/uL (0-0.2); Basophils % (A) 0 %; Eosinophils # (A) 0.1 k/uL (0-0.7); Eosinophils % (A) 0 %; HGB 16.7 gm/dL (13.0-17.5); Lymphocytes # (A) 3.5 k/uL (1.0-4.8); Lymphocytes % (A) 28 %; MCH 32.1 pg (25.0-35.0); MCHC 34.2 g/dL (31.0-37.0); Mean Platelet Volume 7.5; Monocytes # (A) 0.8 k/uL (0-1.0); Monocytes % (A) 7 %; Neutrophils # (A) 7.7 k/uL (1.3-7.7); Neutrophils % (A) 63 %; Platelet Count 221 k/uL (150-450); RBC 5.21 m/uL (4.30-5.90); RDW 11.8 % (11.5-15.5); WBC 12.3 k/uL (3.8-10.6)
[2019-05-17 07:18] LABS: ALT 43 U/L (21-72); AST 23 U/L (17-59); African American GFR (CKD) >90 (>60 ml/min/1.73 sqM); Albumin 4.3 g/dL (3.5-5.0); Alkaline Phosphatase 64 U/L (38-126); Anion Gap 9 mmol/L; Blood Urea Nitrogen 19 mg/dL (9-20); Calcium 9.8 mg/dL (8.4-10.2); Carbon Dioxide 34 mmol/L (22-30); Chloride 100 mmol/L (98-107); Glucose 159 mg/dL (74-99); Sodium 143 mmol/L (137-145); Total Bilirubin 0.6 mg/dL (0.2-1.3); Total Protein 7.6 g/dL (6.3-8.2)
[2019-05-17] MEDS: VALSARTAN 160 MG TAB PO SCH (09:14)
[2019-05-17] MEDS: METOPROLOL SUCCINATE (ER) 100 MG TAB.ER.24H PO SCH (09:14)
[2019-05-17] MEDS: predniSONE 50 MG TAB PO SCH (09:14)
[2019-05-17] MEDS: hydrALAZINE HCL 25 MG TAB PO SCH (09:14)
[2019-05-17] MEDS: valACYclovir HCL 1,000 MG TABLET PO SCH (09:14)
[2019-05-17] MEDS: HYDROCHLOROTHIAZIDE 25 MG TAB PO SCH (09:14)
[2019-05-17] MEDS: ATORVASTATIN 40 MG TAB PO SCH (09:14)
[2019-05-17] MEDS: ASPIRIN 325 MG TAB PO SCH (09:14)
--- NOTE | 2019-05-17 11:26 | MR ---
MR brain without contrast HISTORY: Acute cerebrovascular accident Multiplanar multisequence imaging obtained through the brain and correlated to CT 05/14/2019 There is evidence of prior infarction involving the left parietal lobe however no restricted diffusio n is present to suggest subacute infarct. Focal encephalomalacia present in the head of the caudate o n the left as well as the left parietal lobe cortex, there is corresponding gliosis present, increase d signal on T1 and T2-weighted sequences. There is no hemorrhage or hydrocephalus. Normal vascular fl ow voids. Corpus callosum, pituitary, cervical medullary junction, cerebellopontine angles are normal . Inflammatory change present in the maxillary sinuses, is mucoperiosteal thickening. Orbits show sym metric appearance. IMPRESSION: Chronic infarcts as described. No evidence of subacute infarct.
[2019-05-17 11:59] LABS: Glucose,Whole Blood 216 mg/dL (75-99)
--- NOTE | 2019-05-17 12:20 | P.PN ---
Subjective Progress Note Date: 05/17/19 Patient denies any new neurological symptoms. Patient continues to have right facial weakness, peripheral type. Patient's hemoglobin A1c 7.9. Total cholesterol is 213, LDL 143, HDL 50. Triglycerides 99. Patient is on Lipitor. Patient had a carotid Doppler, which revealed antegrade flow in vertebral arteries. The images and measurements suggest 30-40% stenosis in both ICAs. EKG shows normal sinus rhythm. Patient had an MRI of the brain, which revealed prior infarction involving the left parietal lobe with no restricted diffusion suggest not an acute or subacute, probably a chronic infarct. Patient or his ever denies any history of focal symptoms suggestive of remote stroke. Patient has been started on prednisone 50 mg daily as of 05/15/2019 at 11:25 AM. Patient also has been started on Valtrex 1 g 3 times a day since yesterday 4 p.m. Objective - Vital Signs Vital signs: Vital Signs Temp 98.5 F 05/17/19 08:05 Pulse 73 05/17/19 08:05 Resp 18 05/17/19 08:05 BP 168/89 05/17/19 08:05 Pulse Ox 95 05/17/19 08:05 Intake & Output 05/16/19 05/17/19 05/17/19 18:59 06:59 18:59 Intake Total 1090 10 Balance 1090 10 Weight 117.5 kg Intake: IV 10 10 0.9 10 10 Oral 1080 Other: Voiding Method Toilet # Voids 1 - Exam Patient's mental status, speech and language functions are normal. Cranial ner ves significant for right facial weakness, peripheral type, complete. On muscle strength testing there is no drift and the strength is normal in arms and legs. Reflexes are symmetric and plantars downgoing. - Labs CBC & Chem 7: 05/17/19 06:27 05/17/19 06:27 Labs: Abnormal Lab Results - Last 24 Hours (Table) 05/17/19 05/17/19 05/17/19 Range/Units 06:27 06:27 11:58 WBC 12.3 H (3.8-10.6) k/uL Carbon Dioxide 34 H (22-30) mmol/L Glucose 159 H (74-99) mg/dL POC Glucose (mg/dL) 216 H (75-99) mg/dL Assessment and Plan Assessment: * Right Sabillon's palsy, complete. * History of a remote (silent/asymptomatic) stroke involving the left posterior parietal region, noted on CT/MRI. Patient never had any focal symptoms. * Diabetes type 2 * Hypertension * Obesity Plan: * Patient has been started on prednisone 50 mg daily and Valtrex 1 g 3 times a day. Continue prednisone 50 mg daily for 7 days, then decrease by 10 mg every day until off. * Continue Valtrex 1 g 3 times a day for 7 days. * Agree with starting Lipitor 40 mg, continue aspirin. May take aspirin 81 mg daily indefinitely. * Optimize control of diabetes. * Patient neurologically clear for discharge.
[2019-05-17] MEDS ORDERED: INSULIN ASPART (NovoLOG) 100 UNIT/ML VIAL SQ SCH (12:30)
--- NOTE | 2019-05-17 12:39 | P.DS ---
Providers Date of admission: 05/15/19 12:37 Expected date of discharge: 05/17/19 Attending physician: Zaid Oswald MD Consults: 05/14/19 14:29 Consult Physician Stat Consulting Provider: Radu Gomez Consult Reason/Comments: abnormal CT Do you want consulting provider notified?: Already Contacted 05/15/19 07:42 Consult Physician Stat Consulting Provider: Ruy Ozuna Consult Reason/Comments: carotid stenosis Do you want consulting provider notified?: Yes Primary care physician: [facility] Course: This is 59-year-old white male who reported to the emergency room because of right facial drooping that started around 6 AM. He was at work when it started. One of his family members noticed that and asked patient to report to the emergency room. Patient denies any dizziness, no headache, no loss of consciousness, no abdominal pain. He denies any focal or generalized weakness. He reported to the emergency room and was evaluated by neurology. Patient's right-sided facial droop was thought to be secondary to Sabillon's palsy rather than CVA. CT of the head showed subacute CVA in the left posterior parieto-occipital lobe. Neurology was consulted and recommended CVA workup. CTA of the head and neck showed significant stenosis in the left internal carotid. Echocardiogram showed EF 55-60% with mild concentric LVH. Vascular surgery was consulted for the findings on CTA head and neck and recommended a carotid Doppler. Carotid Doppler showed 30-40% stenosis of bilateral internal carotid arteries. MRI of the brain was done which showed chronic infarcts and no evidence of subacute infarct. Patient was started on 5 days of prednisone along with Valtrex for treatment of Sabillon's palsy. Patient had elevated BP during hospitalization. He was continued on his home dose of metoprolol and valsartan. Hydralazine was added for better control of his blood pressure. Patient was seen and examined. No acute events overnight. Patient reports co ntinued right-sided facial droop, slight improvement from yesterday. He is new onset diabetes mellitus. He denies any chest pain, shortness of breath or palpitations. No nausea or vomiting. No fever or chills. General: [non toxic], [no distress], [appears at stated age] Derm: [warm], [dry] Head: [atraumatic], [normocephalic], [symmetric] Eyes: [EOMI], [no lid lag], [anicteric sclera] Mouth: [no lip lesion], [mucus membranes moist] Cardiovascular: [S1S2 reg], [no murmur], [positive DP pulse bilateral], Lungs: [CTA bilateral], [no rhonchi, no rales] , [no accessory muscle use] Abdominal: [soft], [ nontender to palpation], [no guarding], [no appreciable organomegaly] Ext: [no gross muscle atrophy], [no edema], [no contractures] Neuro: [ CN II-XI grossly intact except right-sided facial droop and difficulty closing right eye, unable to wrinkle right forehead], [no focal neuro deficits] Psych: [Alert], [oriented], [appropriate affect] 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 CT shows subacute CVA in the left posterior parieto-occipital lobe. Neurology consulted, recommends CVA workup. CTA head and neck shows significant stenosis of the left internal carotid. Echocardiogram shows EF 55-60% with mild concentric LVH. Plans: Start aspirin and Lipitor. MRI brain shows chronic infarcts and no subacute. Patient is PT cleared. Patient started on valacyclovir for treatment of Sabillon's palsy, will continue 4 more days of prednisone 50 mg by mouth. Follow OT and ST recommendations. Telemetry monitoring. Advance to neurochecks. Follow neurology recommendations. As seen on CT head. Plans: Management as above. As seen on CTA head and neck. Carotid duplex shows 30-40% stenosis. Plans: Follow vascular surgery consultation. BP 168/89. Plans: Continue metoprolol. Continue valsartan. Monitor vitals, adjust medications as necessary. BMI 37.2. Plans: Structured weight loss program. Lipid panel shows total cholesterol 225 with LDL of 138. Plans: Continue Lipitor. [Patient admitted for right-sided facial droop, likely Sabillon's palsy but subacute CVA seen on CT head. Stroke workup complete. Discussed with social and political studies professor, to obtain a glucometer and diabetic testing supplies. We'll DC today.] Pertinent Studies: CT brain, CTA head and neck, chest x-ray, echocardiogram, carotid Doppler, MRI brain Patient Condition at Discharge: Stable Plan - Discharge Summary Discharge Rx Participant: No New Discharge Prescriptions: New hydrALAZINE HCL [Apresoline] 25 mg PO TID #90 tab Artificial Tears-Hypromellose [Artificial Tear Drops] 2 drops RIGHT EYE QID PRN #1 bottle PRN Reason: Dry Eye(S) Aspirin 325 mg PO DAILY #30 tab Hydrochlorothiazide [Hydrodiuril] 25 mg PO DAILY #30 tab Atorvastatin [Lipitor] 40 mg PO DAILY #30 tab metFORMIN HCL 500 mg PO AC-BID #60 tablet predniSONE See Taper PO DIRECTED 14 Days #40 tab valACYclovir HCL [Valtrex] 1,000 mg PO TID #18 tablet Continue Valsartan/Hydrochlorothiazide [Valsartan-Hctz 160-25 mg Tab] 1 tab PO DAILY Metoprolol Succinate 200 mg PO DAILY Meclizine [Antivert] 25 mg PO ONCE PRN PRN Reason: Congestion Discharge Medication List Meclizine [Antivert] 25 mg PO ONCE PRN 05/14/19 [History] Metoprolol Succinate 200 mg PO DAILY 05/14/19 [History] Valsartan/Hydrochlorothiazide [Valsartan-Hctz 160-25 mg Tab] 1 tab PO DAILY 05/14/19 [History] Artificial Tears-Hypromellose [Artificial Tear Drops] 2 drops RIGHT EYE QID PRN #1 bottle 05/17/19 [Rx] Aspirin 325 mg PO DAILY #30 tab 05/17/19 [Rx] Atorvastatin [Lipitor] 40 mg PO DAILY #30 tab 05/17/19 [Rx] Hydrochlorothiazide [Hydrodiuril] 25 mg PO DAILY #30 tab 05/17/19 [Rx] hydrALAZINE HCL [Apresoline] 25 mg PO TID #90 tab 05/17/19 [Rx] metFORMIN HCL 500 mg PO AC-BID #60 tablet 05/17/19 [Rx] predniSONE See Taper PO DIRECTED 14 Days #40 tab 05/17/19 [Rx] valACYclovir HCL [Valtrex] 1,000 mg PO TID #18 tablet 05/17/19 [Rx] Follow up Appointment(s)/Referral(s): Abdirizak Fung MD [Primary Care Provider] - 1-2 days Zulay Ceron MD [STAFF PHYSICIAN] - 1 Week Patient Instructions/Handouts: Stroke (DC) Activity/Diet/Wound Care/Special Instructions: Diet: Diabetic low salt Follow-up PCP within 3 days of discharge. Follow-up neurology within 1 weeks of discharge. Take all medications as advised. Discharge Disposition: HOME SELF-CARE
[2019-05-17 13:15] VITALS: BP 158/102; PULSE 69; TEMP 98.2
[2019-05-17 13:34] VITALS: BMI 37.1
== END 2019-05-17 14:32 | disposition home or self-care (01) | DRG 74 ==
LOC: EC 12:45 → 3SCARD 15:02 → OBSVTOIN 05-15 12:37
PROVIDERS: ADMIT Internal Medicine; ATTEND Internal Medicine
DX: G51.0 Bell's palsy (principal); E11.65 Type 2 diabetes mellitus with hyperglycemia; I65.23 Occlusion and stenosis of bilateral carotid arteries; J98.6 Disorders of diaphragm; E66.9 Obesity, unspecified; E78.5 Hyperlipidemia, unspecified; I10 Essential (primary) hypertension; G47.33 Obstructive sleep apnea (adult) (pediatric); Z68.37 Body mass index [BMI] 37.0-37.9, adult; Z79.899 Other long term (current) drug therapy; Z86.73 Personal history of transient ischemic attack (TIA), and cerebral infarction without residual deficits; Z87.891 Personal history of nicotine dependence
CPT/HCPCS: 36415; 70450; 70496; 70498; 70551; 71046; 80053; 80061; 83036; 84484; 85025; 85610; 85730; 93005; 93306; 93880; 96360; 99285

== ENCOUNTER 2022-04-02 23:08 | Observation (INO) | payer OTHER ==
[2022-04-02] MEDS ORDERED: LABETALOL 5 MG/ML VIAL MDV IVP STA (23:20)
[2022-04-02] MEDS ORDERED: SODIUM CHLORIDE 0.9% 1,000 ML IV STA ×2 (23:20)
--- NOTE | 2022-04-02 23:42 | ED ---
Neuro HPI - General Chief Complaint: Eye Problems Stated Complaint: unable to see out of LT eye Time Seen by Provider: 04/02/22 23:20 Source: patient, RN notes reviewed, old records reviewed Mode of arrival: ambulatory Limitations: no limitations - History of Present Illness Is the patient presenting with stroke symptoms?: Yes Last Known Well Date: 04/02/22 Last Known Well Time: 19:00 -: hour(s) (4.5) Initial Comments: This is a 62-year-old male DF for evaluation has history of high blood pressure prior history of CVA or TIA. Patient states is worse same symptoms. Vision loss. Patient presents to the hospital at that time and symptoms did resolve. Patient states he laid down to sleep around 7 PM tonight and woke up around 9:30 PM with vision changes in his left eye. Vision loss. States symptoms are improving to a point of blurry vision with history of high blood pressure Location: other (Left eye) History of same: Yes Place: home Severity: moderate Improves With: time Worsens With: none On Anticoagulants: No Context: other (Patient awoke with symptoms tonight) Associated Symptoms: denies other symptoms Treatments Prior to Arrival: none - Related Data Home Medications: Home Medications Medication Instructions Recorded Confirmed Meclizine [Antivert] 25 mg PO ONCE PRN 05/14/19 05/14/19 Metoprolol Succinate 200 mg PO DAILY 05/14/19 05/14/19 Valsartan/Hydrochlorothiazide 1 tab PO DAILY 05/14/19 05/14/19 [Valsartan-Hctz 160-25 mg Tab] Previous Rx's Medication Instructions Recorded Artificial Tears-Hypromellose 2 drops RIGHT EYE QID PRN #1 bottle 05/17/19 [Artificial Tear Drops] Aspirin 325 mg PO DAILY #30 tab 05/17/19 Atorvastatin [Lipitor] 40 mg PO DAILY #30 tab 05/17/19 hydrALAZINE HCL [Apresoline] 25 mg PO TID #90 tab 05/17/19 hydroCHLOROthiazide [Hydrodiuril] 25 mg PO DAILY #30 tab 05/17/19 metFORMIN HCL 500 mg PO AC-BID #60 tablet 05/17/19 predniSONE See Taper PO DIRECTED 14 Days 05/17/19 #40 tab valACYclovir HCL [Valtrex] 1,000 mg PO TID #18 tablet 05/17/19 Allergies/Adverse Reactions: Allergies Allergy/AdvReac Type Severity Reaction Status Date / Time No Known Allergies Allergy Verified 04/02/22 23:15 Review of Systems ROS Statement: Those systems with pertinent positive or pertinent negative responses have been documented in the HPI. ROS Other: All systems not noted in ROS Statement are negative. General Exam Limitations: no limitations Stroke MDM - Lab Data Result diagrams: 04/02/22 23:27 04/02/22 23:27 Lab Results 04/02/22 04/02/22 04/02/22 Range/Units 23:27 23:27 23:27 WBC 8.6 (3.8-10.6) k/uL RBC 5.27 (4.30-5.90) m/uL Hgb 16.0 (13.0-17.5) gm/dL Hct 48.7 (39.0-53.0) % MCV 92.3 (80.0-100.0) fL MCH 30.4 (25.0-35.0) pg MCHC 32.9 (31.0-37.0) g/dL RDW 12.0 (11.5-15.5) % Plt Count 207 (150-450) k/uL MPV 8.7 Neutrophils % 68 % Lymphocytes % 16 % Monocytes % 12 % Eosinophils % 0 % Basophils % 2 % Neutrophils # 5.8 (1.3-7.7) k/uL Lymphocytes # 1.4 (1.0-4.8) k/uL Monocytes # 1.1 H (0-1.0) k/uL Eosinophils # 0.0 (0-0.7) k/uL Basophils # 0.2 (0-0.2) k/uL PT 9.9 (9.0-12.0) sec INR 0.9 (<1.2) APTT 24.9 (22.0-30.0) sec Sodium 140 (137-145) mmol/L Potassium 3.7 (3.5-5.1) mmol/L Chloride 99 (98-107) mmol/L Carbon Dioxide 28 (22-30) mmol/L Anion Gap 13 mmol/L BUN 16 (9-20) mg/dL Creatinine 0.78 (0.66-1.25) mg/dL Est GFR (CKD-EPI)AfAm >90 (>60 ml/min/1.73 sqM) Est GFR (CKD-EPI)NonAf >90 (>60 ml/min/1.73 sqM) Glucose 131 H (74-99) mg/dL Calcium 9.3 (8.4-10.2) mg/dL Total Bilirubin 0.3 (0.2-1.3) mg/dL AST 26 (17-59) U/L ALT 36 (4-49) U/L Alkaline Phosphatase 81 (38-126) U/L Troponin I (0.000-0.034) ng/mL Total Protein 7.3 (6.3-8.2) g/dL Albumin 4.4 (3.5-5.0) g/dL TSH (0.465-4.680) mIU/L 04/02/22 04/03/22 Range/Units 23:27 00:12 WBC (3.8-10.6) k/uL RBC (4.30-5.90) m/uL Hgb (13.0-17.5) gm/dL Hct (39.0-53.0) % MCV (80.0-100.0) fL MCH (25.0-35.0) pg MCHC (31.0-37.0) g/dL RDW (11.5-15.5) % Plt Count (150-450) k/uL MPV Neutrophils % % Lymphocytes % % Monocytes % % Eosinophils % % Basophils % % Neutrophils # (1.3-7.7) k/uL Lymphocytes # (1.0-4.8) k/uL Monocytes # (0-1.0) k/uL Eosinophils # (0-0.7) k/uL Basophils # (0-0.2) k/uL PT (9.0-12.0) sec INR (<1.2) APTT (22.0-30.0) sec Sodium (137-145) mmol/L Potassium (3.5-5.1) mmol/L Chloride (98-107) mmol/L Carbon Dioxide (22-30) mmol/L Anion Gap mmol/L BUN (9-20) mg/dL Creatinine (0.66-1.25) mg/dL Est GFR (CKD-EPI)AfAm (>60 ml/min/1.73 sqM) Est GFR (CKD-EPI)NonAf (>60 ml/min/1.73 sqM) Glucose (74-99) mg/dL Calcium (8.4-10.2) mg/dL Total Bilirubin (0.2-1.3) mg/dL AST (17-59) U/L ALT (4-49) U/L Alkaline Phosphatase (38-126) U/L Troponin I <0.012 (0.000-0.034) ng/mL Total Protein (6.3-8.2) g/dL Albumin (3.5-5.0) g/dL TSH 1.510 (0.465-4.680) mIU/L - NIH Stroke Scale 1a. Level of Consciousness: (0) alert 1b. LOC Questions: (0) answers correctly 1c. LOC Commands: (0) performs tasks correctly 2. Best Gaze: (0) normal 3. Visual: (2) complete hemianopia (Patient initially with complete vision loss which is improving to blurry vision) 4. Facial Palsy: (0) normal symmetrical movement 5a. Motor Arm Left: (0) no drift 5b. Motor Arm Right: (0) no drift 6a. Motor Leg Left: (0) no drift 6b. Motor Leg Right: (0) no drift 7. Limb Ataxia: (0) absent 8. Sensory: (0) normal 9. Best Language: (0) no aphasia 10. Dysarthria: (0) normal 11. Extinction/Inattention: (0) no abnormality - Thrombolytic Inclusion/Exclusion Thrombolytic Exclusion Criteria: Onset of Symptoms Unknown, Symptom Onset > 4.5 Hours (Patient said he went to bed around 7:00pm woke up about 9:30 PM with symptoms, this is > 4.5h) - Radiology Data Radiology results: report reviewed (CT brain and CTA had neck does show 70% stenosis of left ICA), image reviewed - EKG Data -: EKG Interpreted by Me (EKG is sinus rhythm 85 MN 163 QRS 98 QTc 407) Past Medical History Past Medical History: CVA/TIA, Hypertension History of Any Multi-Drug Resistant Organisms: None Reported Past Surgical History: No Surgical Hx Reported Past Anesthesia/Blood Transfusion Reactions: No Reported Reaction Past Psychological History: No Psychological Hx Reported Smoking Status: Former smoker Past Alcohol Use History: Occasional Past Drug Use History: None Reported - Past Family History Father Family Medical History: CVA/TIA Additional Family Medical History / Comment(s): leukemia Mother Additional Family Medical History / Comment(s): MS Course Vital Signs 04/02/22 04/03/22 04/03/22 23:14 00:05 00:12 Temperature 98.1 F Pulse Rate 82 81 86 Respiratory 18 16 16 Rate Blood Pressure 179/90 171/94 137/77 O2 Sat by Pulse 96 97 97 Oximetry - Reevaluation(s) Reevaluation #1: 04/02/22 23:39 Medical record is reviewed Reevaluation #2: 04/02/22 23:39 Patient is outside window for TPA as well as symptoms of complete vision loss does not appear to be acute CVA This is decision is made for no TPA secondary to improvement systems as well as being greater than 4.5 hour since onset - Consultations Consultation #1: I did speak with neuro interventional list at this time patient is not a TPA candidate will start patient on Brillinta and aspirin Critical Care Time Critical Care Time: Yes Total Critical Care Time: 31 Disposition Clinical Impression: Vision loss, left eye, Stroke, Hypertension, Stenosis of left internal carotid artery Disposition: ADMITTED IP TO THIS [facility] Condition: Serious Is patient prescribed a controlled substance at d/c from ED?: No Time of Disposition: 00:20
[2022-04-02 23:44] LABS: Basophils # (A) 0.2 k/uL (0-0.2); Basophils % (A) 2 %; Eosinophils % (A) 0 %; HCT 48.7 % (39.0-53.0); Lymphocytes # (A) 1.4 k/uL (1.0-4.8); Lymphocytes % (A) 16 %; MCH 30.4 pg (25.0-35.0); MCHC 32.9 g/dL (31.0-37.0); MCV 92.3 fL (80.0-100.0); Mean Platelet Volume 8.7; Monocytes # (A) 1.1 k/uL (0-1.0); Monocytes % (A) 12 %; Neutrophils # (A) 5.8 k/uL (1.3-7.7); Neutrophils % (A) 68 %; Platelet Count 207 k/uL (150-450); RBC 5.27 m/uL (4.30-5.90); WBC 8.6 k/uL (3.8-10.6)
--- NOTE | 2022-04-02 23:57 | CT ---
EXAM: CT Angiography Head With Intravenous Contrast CLINICAL HISTORY: ITS.REASON CT Reason: Neuro deficit, acute, stroke suspected TECHNIQUE: Axial computed tomographic angiography images of the head with intravenous contrast. CTDI is 35.83 mGy and DLP is 927 mGy-cm. This CT exam was performed using one or more of the following dose reduction techniques: automated exposure control, adjustment of the mA and/or kV according to patient size, and/or use of iterative reconstruction technique. MIP reconstructed images were created and reviewed. COMPARISON: No relevant prior studies available. FINDINGS: Right internal carotid artery: No acute findings. Intracranial segment is patent with no significant stenosis. No aneurysm. Right anterior cerebral artery: Unremarkable. No occlusion or significant stenosis. No aneurysm. Right middle cerebral artery: Unremarkable. No occlusion or significant stenosis. No aneurysm. Right posterior cerebral artery: Unremarkable. No occlusion or significant stenosis. No aneurysm. Right vertebral artery: Unremarkable as visualized. Left internal carotid artery: No acute findings. Intracranial segment is patent with no significant stenosis. No aneurysm. Left anterior cerebral artery: Unremarkable. No occlusion or significant stenosis. No aneurysm. Left middle cerebral artery: Unremarkable. No occlusion or significant stenosis. No aneurysm. Left posterior cerebral artery: Unremarkable. No occlusion or significant stenosis. No aneurysm. Left vertebral artery: Unremarkable as visualized. Basilar artery: Unremarkable. No occlusion or significant stenosis. No aneurysm. IMPRESSION: Negative CT angiogram of the head. EXAM: CT Angiography Neck With Intravenous Contrast CLINICAL HISTORY: ITS.REASON CT Reason: Neuro deficit, acute, stroke suspected TECHNIQUE: Axial computed tomographic angiography images of the neck with intravenous contrast. CTDI is 35.83 mGy and DLP is 927 mGy-cm. This CT exam was performed using one or more of the following dose reduction techniques: automated exposure control, adjustment of the mA and/or kV according to patient size, and/or use of iterative reconstruction technique. MIP reconstructed images were created and reviewed. COMPARISON: No relevant prior studies available. FINDINGS: VASCULATURE: Right common carotid artery: Unremarkable. No significant stenosis. No dissection or occlusion. Right internal carotid artery: Mild to moderate calcified atherosclerotic disease of the carotid bifurcation. Extracranial segment is patent with no significant stenosis. No dissection or occlusion. Right external carotid artery: Unremarkable. No occlusion. Right vertebral artery: Unremarkable. No significant stenosis. No dissection or occlusion. Left common carotid artery: Unremarkable. No significant stenosis. No dissection or occlusion. Left internal carotid artery: Moderate to heavy atherosclerotic plaque of the carotid bifurcation with small intimal flap and 70% stenosis of the proximal ICA. Extracranial segment is patent with no significant stenosis. Left external carotid artery: Unremarkable. No occlusion. Left vertebral artery: Unremarkable. No significant stenosis. No dissection or occlusion. NECK: Bones/joints: No acute fracture. No dislocation. Soft tissues: Right thyroid nodule. No mass. CAROTID STENOSIS REFERENCE USING NASCET CRITERIA: % ICA stenosis = (1 - narrowest ICA diameter/diameter of distal cervical ICA) x 100. Mild - <50% stenosis. Moderate - 50-69% stenosis. Severe - 70-94% stenosis. Near occlusion - 95-99% stenosis. Occluded - 100% stenosis. IMPRESSION: 70% stenosis of the proximal left ICA with small intimal flap.
--- NOTE | 2022-04-03 | CT ---
EXAM: CT Head Without Intravenous Contrast CLINICAL HISTORY: ITS.REASON CT Reason: Neuro deficit, acute, stroke suspected TECHNIQUE: Axial computed tomography images of the head/brain without intravenous contrast. CTDI is 0 mGy and DLP is 0 mGy-cm. This CT exam was performed using one or more of the following dose reduction techniques: automated exposure control, adjustment of the mA and/or kV according to patient size, and/or use of iterative reconstruction technique. COMPARISON: No relevant prior studies available. FINDINGS: Brain: Remote ischemic injury of the left temporal and occipital lobe with encephalomalacia and gliosis. No hemorrhage. No significant white matter disease. No edema. Ventricles: Unremarkable. No ventriculomegaly. Bones/joints: Unremarkable. No acute fracture. Soft tissues: Bilateral proptosis with proliferation of intraorbital fat. Sinuses: Unremarkable as visualized. No acute sinusitis. Mastoid air cells: Unremarkable as visualized. No mastoid effusion. IMPRESSION: No evidence of acute intracanal pathology. Bilateral proptosis with proliferation of intraorbital fat, which can be seen with thyroid ophthalmopathy in the setting of Graves' disease.
[2022-04-03 00:01] LABS: INR 0.9 (<1.2); Partial Thromboplastin Time 24.9 sec (22.0-30.0); Prothrombin Time 9.9 sec (9.0-12.0)
[2022-04-03 00:13] LABS: ALT 36 U/L (4-49); AST 26 U/L (17-59); African American GFR (CKD) >90 (>60 ml/min/1.73 sqM); Albumin 4.4 g/dL (3.5-5.0); Alkaline Phosphatase 81 U/L (38-126); Anion Gap 13 mmol/L; Blood Urea Nitrogen 16 mg/dL (9-20); Calcium 9.3 mg/dL (8.4-10.2); Carbon Dioxide 28 mmol/L (22-30); Chloride 99 mmol/L (98-107); Glucose 131 mg/dL (74-99); Non-African American GFR(CKD) >90 (>60 ml/min/1.73 sqM); Potassium 3.7 mmol/L (3.5-5.1); Sodium 140 mmol/L (137-145); Total Bilirubin 0.3 mg/dL (0.2-1.3); Total Protein 7.3 g/dL (6.3-8.2)
[2022-04-03] MEDS ORDERED: TICAGRELOR 90 MG TAB PO STA (00:57)
[2022-04-03] MEDS ORDERED: ASPIRIN 325 MG TAB PO STA (00:57)
--- NOTE | 2022-04-03 01:15 | XR ---
EXAM: XR Chest, 2 Views CLINICAL HISTORY: ITS.REASON XR Reason: altered mental status TECHNIQUE: Frontal and lateral views of the chest. COMPARISON: No relevant prior studies available. FINDINGS: Lungs: Mild to moderate peribronchial thickening of the central and lower lobe bronchi. No consolidation. Pleural space: Unremarkable. No pneumothorax. Heart: Unremarkable. No cardiomegaly. Mediastinum: Unremarkable. Bones/joints: Unremarkable. IMPRESSION: Findings concerning for bronchitis, which may be of infectious or inflammatory etiologies. No consolidation.
[2022-04-03] MEDS ORDERED: ONDANSETRON 4 MG/2 ML VIAL IVP PRN (04:40)
[2022-04-03] MEDS ORDERED: DOCUSATE 100 MG CAP PO PRN (04:40)
[2022-04-03] MEDS ORDERED: MELATONIN 3 MG TABLET PO PRN (04:40)
[2022-04-03] MEDS ORDERED: ACETAMINOPHEN TAB 325 MG TAB PO PRN (04:40)
[2022-04-03] MEDS ORDERED: ALPRAZolam 0.25 MG TAB PO PRN (04:40)
[2022-04-03] MEDS ORDERED: CALCIUM CARBONATE 500 MG CHEWABLE PO PRN (04:40)
[2022-04-03] MEDS ORDERED: NALOXONE 0.4 MG/ML 1 ML VIAL IV PRN (04:40)
--- NOTE | 2022-04-03 05:01 | P.HPIM ---
History of Present Illness H&P Date: 04/03/22 Chief Complaint: left eye vision loss 62 year old male with DM , HLD, h/o Stroke , hypertension patient comes in due to loss of vision in his left eye. he reports that he was feeling tired around 7 pm and went to sleep that was the last time he was seen normal , then woke up after pm , and noticed loss of vision over his left eye. he waited for little bit at home, he denies any other associated new focal neuro deficits, denies any dizziness, headache, weakness or numbness over hands or feed, denies any speech difficulties or facial asymetry . he found that his bloo d pressure was high and decided to come in for evaluation . he reports close contact with confirmed COVID infection patient (his spouse) he otherwise denies any fever , chills, chest pain or trouble breathing sore throat, cough, URI symptoms abd pain , nausea or vomiting. he denies any falls or head injury . 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 no other complaints at this time in the ED CT of the brain showed no acute pathology , CTA head and neck showed 7 0% stenosis of left ICA case discussed between ED and neurointervention , he is not a candidate for tPa due to > 4.5 hours onset of symptoms. recommendation were made to start him on aspirin and brilinta blood work otherwise unremarkable , COVID testing pending denies smoking, illicit drugs or alcohol Review of Systems Pertinent positives as noted in HPI. All other systems were reviewed and are negative Past Medical History Past Medical History: CVA/TIA, Diabetes Mellitus, Hypertension History of Any Multi-Drug Resistant Organisms: None Reported Past Surgical History: No Surgical Hx Reported Past Anesthesia/Blood Transfusion Reactions: No Reported Reaction Past Psychological History: No Psychological Hx Reported Smoking Status: Former smoker Past Alcohol Use History: Occasional Past Drug Use History: None Reported - Past Family History Father Family Medical History: CVA/TIA Additional Family Medical History / Comment(s): leukemia Mother Additional Family Medical History / Comment(s): MS Medications and Allergies Home Medications Medication Instructions Recorded Confirmed Type Meclizine [Antivert] 25 mg PO ONCE PRN 05/14/19 05/14/19 History Metoprolol Succinate 200 mg PO DAILY 05/14/19 05/14/19 History Valsartan/Hydrochlorothiazide 1 tab PO DAILY 05/14/19 05/14/19 History [Valsartan-Hctz 160-25 mg Tab] Artificial Tears-Hypromellose 2 drops RIGHT EYE QID PRN #1 bottle 05/17/19 Rx [Artificial Tear Drops] Aspirin 325 mg PO DAILY #30 tab 05/17/19 Rx Atorvastatin [Lipitor] 40 mg PO DAILY #30 tab 05/17/19 Rx hydrALAZINE HCL [Apresoline] 25 mg PO TID #90 tab 05/17/19 Rx hydroCHLOROthiazide [Hydrodiuril] 25 mg PO DAILY #30 tab 05/17/19 Rx metFORMIN HCL 500 mg PO AC-BID #60 tablet 05/17/19 Rx predniSONE See Taper PO DIRECTED 14 Days 05/17/19 Rx #40 tab valACYclovir HCL [Valtrex] 1,000 mg PO TID #18 tablet 05/17/19 Rx Allergies Allergy/AdvReac Type Severity Reaction Status Date / Time No Known Allergies Allergy Verified 04/02/22 23:15 Physical Exam Vitals: Vital Signs Temp Pulse Resp BP Pulse Ox 04/03/22 02:29 77 16 146/79 98 04/03/22 00:12 86 16 137/77 97 04/03/22 00:05 81 16 171/94 97 04/02/22 23:14 98.1 F 82 18 179/90 96 Intake and Output 04/02/22 04/02/22 04/03/22 14:59 22:59 06:59 Other: Weight 115.666 kg Constitutional: No acute distress, conversant, pleasant Eyes: Anicteric sclerae, moist conjunctiva, Pupils equal round , left pupil only reactive to indirect light , right pupil is reactive to direct light ENMT: NC/AT Oropharynx clear, no erythema, or exudates Neck: Supple, no masses, or JVD No carotid bruits No thyromegaly Lungs: Clear to auscultation Clear to percussion Normal respiratory effort, no accessory muscle use Cardiovascular: Heart regular in rate and rhythm, No murmurs, gallops, or rubs No peripheral edema Abdominal: Soft Nontender, no guarding, rebound or rigidity Abdomen moving with respiration Normoactive bowel sounds No hepatomegaly, No splenomegaly No palpable mass No abdominal wall hernia noted Skin: Normal temperature, tone, texture, turgor No induration No subcutaneous nodules No rash, lesions No ulcers Extremities: No digital cyanosis No clubbing Pedal pulses intact and symmetrical Radial pulses intact and symmetrical No calf tenderness Psychiatric: Alert and oriented to person, place and time Appropriate affect fair judgement Neuro Muscles Strength 5/5 in all 4 extremities Sensation to light touch grossly present throughout Cranial nerves III-XII grossly intact, , CNII is impaired over the left eye Lymphatics: no palpable cervical or supraclavicular , or inguinal lymph nodes Results CBC & Chem 7: 04/02/22 23:27 04/02/22 23:27 Labs: Abnormal Lab Results - Last 24 Hours (Table) 04/02/22 04/02/22 Range/Units 23:27 23:27 Monocytes # 1.1 H (0-1.0) k/uL Glucose 131 H (74-99) mg/dL Assessment and Plan Assessment: homonymous hemianopia left eye stroke left ICA stenosis 70% plan neuro checks neuro consults fall precautions PT eval CT brain and CT angio of head and neck reviewed ASA , statin , brilinta not a candidate for tpa due to symptoms >4.5 hours permissive hypertension vascular surgery eval for ICA stenosis A1C, lipid panel echocardiogram monitor vital signs chronic conditions DM insulin sliding scale hypertension , hold home meds, permissive hypertension hyperlipidemia , resume statin full code DVT mechanical
[2022-04-03 08:34] LABS: Glucose,Whole Blood 130 mg/dL (70-110)
[2022-04-03] MEDS: INSULIN ASPART (NovoLOG) 100 UNIT/ML VIAL SQ SCH ×4 (08:34→22:01)
[2022-04-03] MEDS: SODIUM CHLORIDE 0.9% 1,000 ML IV SCH ×2 (08:41→10:59)
[2022-04-03] MEDS: TICAGRELOR 90 MG TAB PO SCH ×2 (08:43→22:18)
--- NOTE | 2022-04-03 09:39 | P.GSCN ---
History of Present Illness Consult date: 04/03/22 Reason for Consult: Carotid stenosis Requesting physician: Scottie Suero History of present illness: This is a very pleasant 62-year-old male who presented to the emergency department yesterday evening after he went to bed and woke up and states that he had complete vision loss in the left eye. Patient states he has improvement of his vision however it is still blurry and he is not able to see complete images. He denied any other focal deficits such as slurred speech, extremity weakness, facial drooping, difficulty with memory or thoughts. He has a past medical history of diabetes mellitus, hypertension, and previous CVA. He is a former smoker smoked for about 20 years quit 10 years ago. Patient did come back as positive for COVID-19 infection, his also is positive for COVID-19. Was seen by the total neuro interventionalists and decided that patient was not a candidate for TPA due to timing and improvement of symptoms. Brilinta and aspirin was initiated yesterday. Patient had been on a atorvastatin and now increased to 80 mg daily. Patient's is at the bedside and states in 2009 he was brought into the emergency department for facial drooping and the rectum up for possible CVA. 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 CT of the brain in April 2019 showed subacute left occipital/parietal infarct he also had a CT angiogram of the head and neck, suspicious left ICA stenosis, undeterminable percentage due to plaque. Carotid duplex showed bilateral ICA stenosis approximately 30-40%. Patient had no other follow up outpatient. At this time he continues to have visual change of the left eye, no complaints of right visual disturbances. He denies any other focal deficits at this time. Denies any shortness of breath, chest pain, nausea or vomiting, fevers or chills. States he was coughing yesterday but not today. He is been afebrile. Patient has been hypertensive with blood pressures ranging 120s to 140s over 70s to 110. CT angiogram head and neck: Head reports negative CT angiogram of the head. Neck reports 70% stenosis of the proximal left ICA with small intimal flap Brain CT: No evidence of acute intracranial pathology. Bilateral proptosis with proliferation of intraorbital fat, which can be seen with thyroid opthalmopathy in the setting of Graves' disease Review of Systems A 14 point review systems was completed all pertinent positives and negatives as stated in the HPI. Past Medical History Past Medical History: CVA/TIA, Diabetes Mellitus, Hypertension History of Any Multi-Drug Resistant Organisms: None Reported Past Surgical History: No Surgical Hx Reported Past Anesthesia/Blood Transfusion Reactions: No Reported Reaction Past Psychological History: No Psychological Hx Reported Smoking Status: Former smoker Past Alcohol Use History: Occasional Past Drug Use History: None Reported - Past Family History Father Family Medical History: CVA/TIA Additional Family Medical History / Comment(s): leukemia Mother Additional Family Medical History / Comment(s): MS Medications and Allergies Home Medications Medication Instructions Recorded Confirmed Type Metoprolol Succinate 200 mg PO DAILY 05/14/19 04/03/22 History Valsartan/Hydrochlorothiazide 1 tab PO DAILY 05/14/19 04/03/22 History [Valsartan-Hctz 160-25 mg Tab] Aspirin EC [Ecotrin Low Dose] 81 mg PO DAILY 04/03/22 04/03/22 History amLODIPine 10 mg PO DAILY 04/03/22 04/03/22 History metFORMIN HCL 1,000 mg PO BID 04/03/22 04/03/22 History Allergies Allergy/AdvReac Type Severity Reaction Status Date / Time No Known Allergies Allergy Verified 04/03/22 09:31 Surgical - Exam Vital Signs Temp Pulse Resp BP Pulse Ox 98.1 F 82 18 179/90 96 04/02/22 23:14 04/02/22 23:14 04/02/22 23:14 04/02/22 23:14 04/02/22 23:14 General appearance: The patient is alert, oriented, appears in no acute distress. HET: Head is normocephalic and atraumatic. Pupils are equal and reactive. Neck: Supple without lymphadenopathy. Trachea midline. No audible carotid bruit. Heart: S1 S2. Regular rate and rhythm. Lungs: Clear to auscultation bilaterally. Abdomen: Soft, nontender, nondistended. Extremities: Normal skin color and turgor. No cyanosis, rash, ulceration, clubb ing, or edema. Radial and pedal pulses are 2/4 bilaterally. Neurological: No focal deficits. Strength and sensation are grossly intact. Results - Labs 04/02/22 23:27 04/02/22 23:27 Abnormal Lab Results - Last 24 Hours (Table) 04/02/22 04/02/22 04/03/22 Range/Units 23:27 23:27 05:50 Monocytes # 1.1 H (0-1.0) k/uL Glucose 131 H (74-99) mg/dL Coronavirus (PCR) Detected A (Not Detectd) Diabetes panel 04/02/22 Range/Units 23:27 Sodium 140 (137-145) mmol/L Potassium 3.7 (3.5-5.1) mmol/L Chloride 99 (98-107) mmol/L Carbon Dioxide 28 (22-30) mmol/L BUN 16 (9-20) mg/dL Creatinine 0.78 (0.66-1.25) mg/dL Glucose 131 H (74-99) mg/dL Calcium 9.3 (8.4-10.2) mg/dL AST 26 (17-59) U/L ALT 36 (4-49) U/L Alkaline Phosphatase 81 (38-126) U/L Total Protein 7.3 (6.3-8.2) g/dL Albumin 4.4 (3.5-5.0) g/dL Thyroid panel 04/03/22 Range/Units 00:12 TSH 1.510 (0.465-4.680) mIU/L Calcium panel 04/02/22 Range/Units 23:27 Calcium 9.3 (8.4-10.2) mg/dL Albumin 4.4 (3.5-5.0) g/dL Pituitary panel 04/02/22 04/03/22 Range/Units 23:27 00:12 Sodium 140 (137-145) mmol/L Potassium 3.7 (3.5-5.1) mmol/L Chloride 99 (98-107) mmol/L Carbon Dioxide 28 (22-30) mmol/L BUN 16 (9-20) mg/dL Creatinine 0.78 (0.66-1.25) mg/dL Glucose 131 H (74-99) mg/dL Calcium 9.3 (8.4-10.2) mg/dL TSH 1.510 (0.465-4.680) mIU/L Adrenal panel 04/02/22 Range/Units 23:27 Sodium 140 (137-145) mmol/L Potassium 3.7 (3.5-5.1) mmol/L Chloride 99 (98-107) mmol/L Carbon Dioxide 28 (22-30) mmol/L BUN 16 (9-20) mg/dL Creatinine 0.78 (0.66-1.25) mg/dL Glucose 131 H (74-99) mg/dL Calcium 9.3 (8.4-10.2) mg/dL Total Bilirubin 0.3 (0.2-1.3) mg/dL AST 26 (17-59) U/L ALT 36 (4-49) U/L Alkaline Phosphatase 81 (38-126) U/L Total Protein 7.3 (6.3-8.2) g/dL Albumin 4.4 (3.5-5.0) g/dL - Imaging Comments: CT angiogram head and neck: Head reports negative CT angiogram of the head. Neck reports 70% stenosis of the proximal left ICA with small intimal flap Brain CT: No evidence of acute intracranial pathology. Bilateral proptosis with proliferation of intraorbital fat, which can be seen with thyroid opthalmopathy in the setting of Graves' disease Assessment and Plan Assessment: 1. Symptomatic Left ICA stenosis, 70% per CT angiogram 2. Left vision loss/changes 3. COVID-19 positive 4. Hypertension 5. Former smoker 6. 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 Carotid duplex ordered 2. Continue aspirin, Brilinta and atorvastatin 3. Await further recommendations from neurology 4. Intervention discussed with patient and his who was at the bedside. Will need outpatient follow-up, likely to schedule carotid endarterectomy versus TCAR 5. Further recommendations forthcoming based on clinical course Thank you for this consultation, we will continue to follow. The impression and plan of care has been dictated as directed. Dr. Pulido I performed a history and examination of this patient, discussed the same with the dictator. I agree with the dictator's note ,documented as a scribe. Any additional findings or plans will be noted.
[2022-04-03 12:52] LABS: Glucose,Whole Blood 163 mg/dL (70-110)
[2022-04-03 12:58] LABS: Glucose,Whole Blood 136 mg/dL (70-110)
--- NOTE | 2022-04-03 13:18 | CA ---
Transthoracic Echo Report Name: Bari Alvarenga Age: 62 Gender: M : 1960 Exam Date: 04/03/2022 08:45 Exam Location: [facility] Ht (in): 70 Wt (lb): 255 Ordering Physician: Gilma Simeon MD Attending/Referring Phys: [id number], [employer] Maid Roro Salas RDCS Procedure CPT: Indications: stroke Cardiac Hx: Technical Quality: Fair Contrast 1: Total Dose (mL): Contrast 2: Total Dose (mL): MEASUREMENTS (Male / Female) Normal Values 2D ECHO LV Diastolic Diameter PLAX 4.6 cm 4.2 - 5.9 / 3.9 - 5.3 cm LV Systolic Diameter PLAX 2.7 cm IVS Diastolic Thickness 1.3 cm 0.6 - 1.0 / 0.6 - 0.9 cm LVPW Diastolic Thickness 1.6 cm 0.6 - 1.0 / 0.6 - 0.9 cm LV Relative Wall Thickness 0.7 RV Internal Dim ED PLAX 3.0 cm M-MODE Aortic Root Diameter MM 3.5 cm LA Systolic Diameter MM 5.8 cm LA Ao Ratio MM 1.6 AV Cusp Separation MM 1.8 cm DOPPLER AV Peak Velocity 151.4 cm/s AV Peak Gradient 9.2 mmHg LVOT Peak Velocity 120.7 cm/s LVOT Peak Gradient 5.8 mmHg MV Area PHT 3.4 cm??? Mitral E Point Velocity 105.8 cm/s Mitral A Point Velocity 77.0 cm/s Mitral E to A Ratio 1.4 MV Deceleration Time 222.5 ms TR Peak Velocity 268.0 cm/s TR Peak Gradient 28.7 mmHg Right Ventricular Systolic Press 33.7 mmHg FINDINGS Left Ventricle Mildly increased septal wall thickness. Normal left ventricular systolic function with no obvious regional wall motion abnormalities. Left ventricular ejection fraction is estimated at 55-60 %. Normal left ventricular diastolic filling pattern. Right Ventricle Normal right ventricular size. Right ventricular systolic pressure within normal limits. Right Atrium Normal right atrial size. Left Atrium Mild left atrial dilatation. Mitral Valve Structurally normal mitral valve. Mild mitral annular calcification. Mild mitral regurgitation. Aortic Valve No aortic valve stenosis or regurgitation. Tricuspid Valve Structurally normal tricuspid valve. Mild tricuspid regurgitation. Pulmonic Valve Trace pulmonic regurgitation. Pericardium No pericardial effusion. Aorta Normal size aortic root and proximal ascending aorta. CONCLUSIONS Normal LV size and systolic function. Mild mitral annular calcification and aortic sclerosis. Mild mitral and tricuspid insufficiency. No pericardial effusion Previewed by: Dr. Jomar Melendez MD (Electronically Signed) Final Date: 03 April 2022 13:17
--- NOTE | 2022-04-03 14:11 | P.PN ---
Subjective Progress Note Date: 04/03/22 Principal diagnosis: vision loss He states that his vision improved today but still blurry. It is just affecting the left eye. No nausea or vomiting. No focal weakness or numbness. Objective - Vital Signs Vital signs: Vital Signs Temp 98.6 F 04/03/22 13:25 Pulse 68 04/03/22 13:25 Resp 16 04/03/22 13:25 BP 168/103 04/03/22 13:25 Pulse Ox 96 04/03/22 13:25 FiO2 Intake & Output 04/02/22 04/03/22 04/03/22 18:59 06:59 18:59 Weight 115.666 kg - Exam Constitutional: No acute distress, conversant, pleasant Eyes:Anicteric sclerae, moist conjunctiva, no lid-lag, PERRLA, ENMT: Oropharynx clear, no erythema, exudates Neck: Supple, FROM, no masses, or JVD, No carotid bruits, No thyromegaly Lungs: Clear to auscultation, Clear to percussion, Normal respiratory effort, no accessory muscle use Cardiovascular: Heart regular in rate and rhythm, No murmurs, gallops, or rubs, No peripheral edema Abdominal: Soft, Nontender, no guarding, rebound or rigidity, Normoactive bowel sounds, No hepatomegaly, No splenomegaly, No palpable mass Skin: Normal temperature, tone, texture, turgor, no induration, No subcutaneous nodules, No rash, lesions, No ulcers Extremities: No digital cyanosis, No clubbing, Pedal pulses intact and symmetrical, Radial pulses intact and symmetrical, No calf tenderness Psychiatric: Alert and oriented to person, place and time, appropriate affect, intact judgement Neuro: Muscles Strength 5/5 in all 4 extremities, Sensation to light touch grossly present throughout, Left eye vision loss, rest of CN intact, no focal sensory deficits - Labs CBC & Chem 7: 04/02/22 23:27 04/02/22 23:27 Labs: Abnormal Lab Results - Last 24 Hours (Table) 04/02/22 04/02/22 04/02/22 Range/Units 23:27 23:27 23:27 Monocytes # 1.1 H (0-1.0) k/uL Glucose 131 H (74-99) mg/dL POC Glucose (mg/dL) (70-110) mg/dL Hemoglobin A1c 6.8 H (0.0-6.0) % Coronavirus (PCR) (Not Detectd) 04/02/22 04/03/22 04/03/22 Range/Units 23:29 05:50 08:33 Monocytes # (0-1.0) k/uL Glucose (74-99) mg/dL POC Glucose (mg/dL) 136 H 130 H (70-110) mg/dL Hemoglobin A1c (0.0-6.0) % Coronavirus (PCR) Detected A (Not Detectd) 04/03/22 Range/Units 12:51 Monocytes # (0-1.0) k/uL Glucose (74-99) mg/dL POC Glucose (mg/dL) 163 H (70-110) mg/dL Hemoglobin A1c (0.0-6.0) % Coronavirus (PCR) (Not Detectd) Assessment and Plan Plan: Left eye vision loss likely due to acute stroke with an embolus from the left ICA stenosis 70% neuro checks fall precautions PT eval CT brain and CT angio of head and neck reviewed ASA , statin , brilinta not a candidate for tpa due to symptoms >4.5 hours D/w neuro, will need stat ophthalmology consult, communicated that with the er staff, loan secretary calling office. echocardiogram ok. Left ICA stenosis Vascular consulted, planning intervention outpatient DM A1c 6.8, start insulin sliding scale Hypertension , hold home meds, permissive hypertension Hyperlipidemia , resume statin
--- NOTE | 2022-04-03 14:29 | P.CNNES ---
History of Present Illness Consult date: 04/03/22 Requesting physician: Scottie Suero Reason for Consult: CVA History of Present Illness: Patient is a 62-year-old male with history of hypertension, diabetes, previous TIA, came to the hospital yesterday at 11:08 PM for acute onset of vision loss left eye. Patient states that yesterday he was feeling fine. He took a nap, which is not unusual for him at 7:30 PM. When he woke up at 9:30 PM, he noticed complete vision loss in the left eye. There were no associated symptoms like headache, slurred speech, facial droop, any focal numbness tingling weakness diplopia, or dizziness. Patient came to the ER and arrived at 11:08 PM. Patient's was also present at the time of interview, who concurred with the above. Vital signs on arrival blood pressure 179/90, pulse rate 82 temperature 98.1. Blood test shows normal CBC, PT/PTT, normal CMP. TSH is normal. Coronal virus PCR is positive. Patient's last hemoglobin A1c 7.9 and LDL 143 on 05/15/2019. CT head showed no acute process. Bilateral proptosis with proliferation of intraorbital fat, which can be seen with thyroid ophthalmopathy in the setting of Graves' disease. EKG shows sinus rhythm. CTA of head is reported as "negative". CTA of the neck showed 70% stenosis of the proximal left ICA with small intimal flap. I personally reviewed CT head and CTA of head and neck and agree with the findings. Chest x-ray showed findings concerning for bronchitis, which may be of infectious or inflammatory etiologies. No consolidation. Stroke code was activated, in the ED staff discuss case with the stroke neurologist/neuro intervention. Patient NIH stroke scale was 2 with complete hemianopsia left side. Patient did not receive TPA as it was felt the onset of symptoms were > 4.5 hours and his symptoms of vision loss was improving to naren rred vision on the left. Patient states that his vision has improved about only 20-30%, whereas one completely black at the onset. Patient has been seen by myself on 05/14/2019 when he has presented with acute onset of right facial weakness. He was diagnosed with right Sabillon's palsy. MRI of the brain at that time revealed prior infarction involving the left parietal lobe with no restricted diffusion suggestive of any acute or subacute ischemia. Patient had no previous history of clinical stroke or TIA. Patient was discharged on prednisone. Patient has hyperlipidemia. He was recommended to start aspirin 81 mg and Lipitor 40 mg at that time. Carotid Doppler revealed 30-40% stenosis of both ICA. Vascular surgery consulted the patient at that time. Patient was discharged on aspirin 325 mg daily it appears. Patient has history of smoking started at age 29. By the time he quit smoking at age 49, he was smoking up to 2 packs per day. He is nonsmoker at this time. He denies any alcohol. Patient states that he is fully vaccinated, with the last moderna booster dose he received on 06/13/2021. Patient at present is taking aspirin 81 mg, amlodipine 10 mg, metformin 1000 mg twice a day, metoprolol and valsartan/HCTZ. Review of Systems Eyes: left blurred vision, left loss of vision, denies diplopia, denies pain Ears, nose, mouth and throat: Denies headache, Denies sore throat Cardiovascular: Denies chest pain, Denies shortness of breath Respiratory: Denies cough Gastrointestinal: Denies abdominal pain, Denies diarrhea, Denies nausea, Denies vomiting Musculoskeletal: Denies myalgias Integumentary: Denies pruritus, Denies rash Neurological: Denies numbness, Denies weakness Psychiatric: Denies anxiety, Denies depression Endocrine: Denies fatigue, Denies weight change Hematologic/Lymphatic: Denies easy bruising Allergic/Immunologic: Denies persistent infections Past Medical History Past Medical History: CVA/TIA, Diabetes Mellitus, Hypertension History of Any Multi-Drug Resistant Organisms: None Reported Past Surgical History: No Surgical Hx Reported Past Anesthesia/Blood Transfusion Reactions: No Reported Reaction Past Psychological History: No Psychological Hx Reported Smoking Status: Former smoker Past Alcohol Use History: Occasional Past Drug Use History: None Reported - Past Family History Father Family Medical History: CVA/TIA Additional Family Medical History / Comment(s): leukemia Mother Additional Family Medical History / Comment(s): MS Medications and Allergies Home Medications Medication Instructions Recorded Confirmed Type Metoprolol Succinate 200 mg PO DAILY 05/14/19 04/03/22 History Valsartan/Hydrochlorothiazide 1 tab PO DAILY 05/14/19 04/03/22 History [Valsartan-Hctz 160-25 mg Tab] Aspirin EC [Ecotrin Low Dose] 81 mg PO DAILY 04/03/22 04/03/22 History amLODIPine 10 mg PO DAILY 04/03/22 04/03/22 History metFORMIN HCL 1,000 mg PO BID 04/03/22 04/03/22 History Allergies Allergy/AdvReac Type Severity Reaction Status Date / Time No Known Allergies Allergy Verified 04/03/22 09:31 Physical Examination - Vital Signs Vital Signs: Vital Signs Temp Pulse Resp BP Pulse Ox 04/03/22 09:24 97.6 F 75 16 143/90 97 04/03/22 08:44 98.2 F 72 16 125/110 98 04/03/22 08:43 98.2 F 72 16 125/110 04/03/22 07:30 98.2 F 97 16 131/76 96 04/03/22 05:55 70 16 151/97 95 04/03/22 02:29 77 16 146/79 98 04/03/22 00:12 86 16 137/77 97 04/03/22 00:05 81 16 171/94 97 04/02/22 23:14 98.1 F 82 18 179/90 96 Intake and Output 04/02/22 04/03/22 04/03/22 22:59 06:59 14:59 Other: Weight 115.666 kg Patient is an elderly male, in no acute distress. Patient is alert awake oriented to time place and person. Speech and language functions are normal. Patient can name and repeat very well. No aphasia or dysarthria. Attention, concentration and fund of knowledge is adequate. On cranial nerve examination, pupils are equal, round and reacting to light, with very prominent left APD. His visual zelaya are full on confrontation on the right, but has significant central vision loss in the left eye, cannot count fingers. He has some preserved peripheral vision involving the left upper quadrant and slightly in the inferior quadrant. There is no neglect on double simultaneous stimulation with the right eye. Extraocular muscles are intact with no nystagmus. Face is symmetric, tongue protrudes to the midline. Palatal elevation and sensation normal, hearing and shoulder shrug normal, facial sensation normal. On muscle strength testing, there is no pronator drift and the strength is normal in arms and legs distally and proximally. Deep tendon reflexes are symmetric 1 in the upper limbs at biceps and brachioradialis, 1+ at the knees, 1 at ankles and plantars downgoing bilaterally. Sensory to touch is equal with no neglect on double simultaneous stimulation. Cerebellar function showed no ataxia for [id number] testing. No dysdiadochokinesia. No ataxia for [id number] testing on either side. Tone and bulk of muscles normal. Gait deferred.. On general examination, there is no carotid bruit or murmur, S1-S2 audible. Chest is clear on consultation. Abdomen is soft nontender. No organomegaly, bowel sounds present. Peripheral pulses are present. No edema. Results - Laboratory Findings CBC and BMP: 04/02/22 23:27 04/02/22 23:27 Abnormal Lab Findings: Abnormal Labs 04/02/22 04/02/22 04/03/22 23:27 23:27 05:50 Monocytes # 1.1 H Glucose 131 H POC Glucose (mg/dL) Coronavirus (PCR) Detected A 04/03/22 08:33 Monocytes # Glucose POC Glucose (mg/dL) 130 H Coronavirus (PCR) Assessment and Plan Assessment: * Acute onset of left eye vision loss (noticed on waking up). Probable embolic from left carotid disease. CTA showed 70% stenosis with evidence of intimal flap * Hypertension * Diabetes * Hyperlipidemia * X tobacco use * Acute Covid-19 infection. Plan: * Patient's vision in the left eye has slightly improved, but still significant deficit. * Patient started on dual antiplatelet medication with aspirin and Brilinta. * Vascular surgery has seen the patient. Patient probably will benefit from left CEA because of symptomatic left ICA stenosis. Patient also has a left intimal flap noted on the CTA, which could be thrombogenic. Likewise, presence of acute Covid infection can be associated with hypercoagulable state as well. * Hemoglobin A1c 6.8 * Lipid panel * Carotid Doppler pending. * 2-D echo revealed normal left ventricular size and systolic function with EF 55-60%. Mild mitral annular calcification and aortic sclerosis. * ESR, CRP. * Urgent Ophthalmology consult. * Neurology will follow. Thank you for the consult.
[2022-04-03] MEDS ORDERED: ATORVASTATIN 80 MG TAB PO SCH (21:00)
[2022-04-03 21:34] LABS: Glucose,Whole Blood 131 mg/dL (70-110)
--- NOTE | 2022-04-04 03:13 | CONS ---
CONSULTATION CHIEF COMPLAINT: Poor vision in left eye. HISTORY OF PRESENT ILLNESS: Mr. Alvarenga is a 62-year-old male, who presented today with sudden loss of vision in the left eye beginning yesterday evening. The loss of vision has been constant, and has improved slightly. There is no associated pain or other symptoms. There is no associated headache. There is no associated temporal pain. The symptoms began with complete darkness in the left eye, which has slightly improved, but is still very hazy at this time. REVIEW OF SYSTEMS: The patient denies any dizziness, headache, weakness, or numbness along with any facial asymmetry. MEDICAL HISTORY: History of TIA, diabetes mellitus, hypertension. SURGICAL HISTORY: Denies any ophthalmic surgery. SOCIAL HISTORY: Former smoker. Occasional alcohol use. Denies drug use. FAMILY HISTORY: Significant for leukemia and TIA in his father, and multiple sclerosis in the mother. MEDICATIONS: His home medications include, 1. Meclizine. 2. Metoprolol. 3. Losartan/hydrochlorothiazide. 4. Aspirin. 5. Lipitor. 6. Hydralazine. 7. Metformin. 8. Prednisone. 9. Valacyclovir. ALLERGIES: No known drug allergies. PHYSICAL EXAMINATION: Ophthalmic exam shows visual acuity 20/200 at near in the right eye without correction. Hand motion in the left eye without correction. Intra-ocular pressure is 20 mmHg in both eyes. Anterior examination reveals extraocular movements are full and intact. There is a mild afferent pupillary defect in the left eye. The conjunctiva is white. The cornea is clear. Anterior chamber is within normal limits. There is 1+ nuclear sclerotic cataract in both eyes. Posterior examination is within normal limits in the right eye. Posterior examination of the left eye reveals decreased caliber of veins and arteries along with a whitening of the overall appearance of the retina. This is consistent with an arterial occlusion. ASSESSMENT AND PLAN: 1. Central retinal artery occlusion, left eye. The patient will require stroke evaluation including carotid ultrasound and echocardiogram. Those need to be completed and addressed as needed to help identify a possible embolic source. From an ocular standpoint, I recommend starting brimonidine ophthalmic drops 1 drop in the left eye twice daily to help lower the pressure, which may help perfusion. Unfortunately, the prognosis for central retinal artery occlusion is 4. Outpatient management is recommended to evaluate and treat the potential sequelae. At this time, no further ophthalmic treatment would be necessary. After discharge, I recommend the patient follow up as an outpatient within 1 week at my office. 2. Nonproliferative diabetic retinopathy, mild, bilateral. Retinopathy is mild and not concerning for visual loss at this time. However, I recommend tight blood sugar control and continued followup as an outpatient. 3. Hypertensive retinopathy, bilateral. Recommend blood pressure control. Thank you for allowing me to participate in this patient's care. I recommend follow up as an outpatient within 1 week of discharge in my office. MMODL / IJN: [id number] /
[2022-04-04] MEDS ORDERED: cloNIDine HCL 0.2 MG TAB PO PRN (05:09)
[2022-04-04 06:38] LABS: Glucose,Whole Blood 140 mg/dL (70-110)
[2022-04-04] MEDS: INSULIN ASPART (NovoLOG) 100 UNIT/ML VIAL SQ SCH ×2 (06:55→12:53)
[2022-04-04] MEDS: SODIUM CHLORIDE 0.9% 1,000 ML IV SCH ×2 (06:56→08:49)
[2022-04-04 07:21] LABS: Basophils % (A) 0 %; Eosinophils % (A) 0 %; HCT 46.5 % (39.0-53.0); HGB 15.5 gm/dL (13.0-17.5); Lymphocytes # (A) 1.5 k/uL (1.0-4.8); Lymphocytes % (A) 22 %; MCH 31.2 pg (25.0-35.0); MCHC 33.4 g/dL (31.0-37.0); MCV 93.4 fL (80.0-100.0); Mean Platelet Volume 8.8; Monocytes # (A) 0.6 k/uL (0-1.0); Monocytes % (A) 8 %; Neutrophils # (A) 4.4 k/uL (1.3-7.7); Neutrophils % (A) 67 %; Platelet Count 222 k/uL (150-450); RBC 4.97 m/uL (4.30-5.90); RDW 12.5 % (11.5-15.5); WBC 6.5 k/uL (3.8-10.6)
[2022-04-04 07:53] LABS: ALT 34 U/L (4-49); AST 23 U/L (17-59); African American GFR (CKD) >90 (>60 ml/min/1.73 sqM); Albumin 4.1 g/dL (3.5-5.0); Alkaline Phosphatase 62 U/L (38-126); Anion Gap 10 mmol/L; Blood Urea Nitrogen 9 mg/dL (9-20); Calcium 8.6 mg/dL (8.4-10.2); Carbon Dioxide 27 mmol/L (22-30); Chloride 104 mmol/L (98-107); Glucose 143 mg/dL (74-99); Non-African American GFR(CKD) >90 (>60 ml/min/1.73 sqM); Potassium 3.9 mmol/L (3.5-5.1); Sodium 141 mmol/L (137-145); Total Bilirubin 0.6 mg/dL (0.2-1.3); Total Protein 6.7 g/dL (6.3-8.2)
[2022-04-04] MEDS ORDERED: ASPIRIN 325 MG TAB PO SCH (09:00)
[2022-04-04] MEDS: TICAGRELOR 90 MG TAB PO SCH (09:03)
[2022-04-04 09:14] VITALS: RESP 16; TEMP 98
[2022-04-04 10:45] LABS: Chol/HDL Ratio 3.63 Ratio; LDL Cholesterol,Calculated 78.1 mg/dL (0.0-131.0)
--- NOTE | 2022-04-04 10:58 | P.PN ---
Subjective Progress Note Date: 04/04/22 Principal diagnosis: Left vision loss/changes Patient was seen and examined today as a follow-up. He still complaining of left visual changes with blurred vision. He denies any other focal deficits. No acute changes through the night. He was seen yesterday by ophthalmology, Dr. Santiago which diagnosed him with a central retinal artery occlusion of the left eye. He recommended a stroke evaluation including carotid ultrasound and echocardiogram to identify possible embolic source. Carotid duplex was reviewed with less than 50% bilateral ICA stenosis. Objective - Vital Signs Vital signs: Vital Signs Temp 98.0 F 04/04/22 09:13 Pulse 71 04/04/22 09:13 Resp 16 04/04/22 09:13 BP 146/62 04/04/22 09:13 Pulse Ox 96 04/04/22 09:13 FiO2 Intake & Output 04/03/22 04/04/22 04/04/22 18:59 06:59 18:59 Intake Total 240 Balance 240 Intake: Oral 240 Other: Voiding Method Toilet # Voids 6 - Exam General appearance: The patient is alert, oriented, appears in no acute distress. HET: Head is normocephalic and atraumatic. Pupils are equal and reactive. Left vision loss. Neck: Supple without lymphadenopathy. Trachea midline. No audible carotid bruit. Heart: S1 S2. Regular rate and rhythm. Lungs: Clear to auscultation bilaterally. Abdomen: Soft, nontender, nondistended. Extremities: Normal skin color and turgor. Palpable bilateral radial pulse. Neurological: Left vision loss. Strength and sensation are grossly intact. - Labs CBC & Chem 7: 04/04/22 06:29 04/04/22 06:29 Labs: Abnormal Lab Results - Last 24 Hours (Table) 04/02/22 04/02/22 04/03/22 Range/Units 23:27 23:29 12:51 Glucose (74-99) mg/dL POC Glucose (mg/dL) 136 H 163 H (70-110) mg/dL Hemoglobin A1c 6.8 H (0.0-6.0) % 04/03/22 04/04/22 04/04/22 Range/Units 21:32 06:29 06:36 Glucose 143 H (74-99) mg/dL POC Glucose (mg/dL) 131 H 140 H (70-110) mg/dL Hemoglobin A1c (0.0-6.0) % Assessment and Plan Assessment: 1. Left ICA stenosis, 70% per CT angiogram with discordant findings of less than 50% left ICA stenosis per carotid ultrasound 2. Left vision loss/changes due to central retinal artery occlusion 3. COVID-19 positive 4. Hypertension 5. Former smoker 6. 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 Carotid duplex ordered and reviewed, discordant findings compared to CT angiogram head and neck. However consistent with a former CTA/carotid duplex done in 2019. 2. Continue aspirin, Brilinta and atorvastatin 3. Recommend MRA head and neck, this can be done as an outpatient. Will discuss with neurology if MRI is warranted will order as inpatient 4. Ophthalmology on consult, appreciated their recommendations 5. Await further recommendations from neurology 6. At this time no plans on vascular surgical intervention as an inpatient. Further recommendations forthcoming for outpatient recommendations based on MRA results. Thank you for this consultation, we will continue to follow. The impression and plan of care has been dictated as directed. Dr. Pulido I performed a history and examination of this patient, discussed the same with the dictator. I agree with the dictator's note ,documented as a scribe. Any additional findings or plans will be noted.
[2022-04-04 11:48] LABS: Glucose,Whole Blood 146 mg/dL (70-110)
--- NOTE | 2022-04-04 14:29 | US ---
EXAMINATION TYPE: US carotid duplex BILAT DATE OF EXAM: 04/04/2022 COMPARISON: CTA neck one day earlier. CLINICAL HISTORY: CVA, evaluate for ICA stenosis. TECHNIQUE: Carotid duplex ultrasound examination. Indirect Doppler criteria was utilized. FINDINGS: EXAM MEASUREMENTS: RIGHT: Peak Systolic Velocity (PSV) cm/sec ----- Right CCA: 72.9 ----- Right ICA: 75.7 ----- Right ECA: 90.5 ICA/CCA ratio: 1.0 RIGHT: End Diastole cm/sec ----- Right CCA: 19.4 ----- Right ICA: 15.3 ----- Right ECA: 20.6 LEFT: Peak Systolic Velocity (PSV) cm/sec ----- Left CCA: 78.0 ----- Left ICA: 96.5 ----- Left ECA: 75.8 ICA/CCA ratio: 1.2 LEFT: End Diastole cm/sec ----- Left CCA: 15.7 ----- Left ICA: 22.8 ----- Left ECA: 11.1 VERTEBRALS (direction of flow): Right Vertebral: Antegrade Left Vertebral: Antegrade Rhythm: Normal EDUCATIONAL PSYCHOLOGY PROFESSOR NOTES: Large thick neck technically difficult study Grayscale images show mild to moderate peripheral plaque right carotid bulb level and moderate shadow ing plaque left carotid bulb level. Velocity measurements and ratios remain within normal limits bila terally. IMPRESSION: No hemodynamically significant stenosis seen in either internal carotid artery. Findings correlate with CTA study performed one day earlier. Criteria for Assigning % of Stenosis / Diameter reduction (Estimation based on the indirect measurements of the internal carotid artery velocities (ICA PSV). 1. Normal (no stenosis)=ICA PSV < 125 cm/s: ratio < 2.0: ICA EDV<40 cm/s. 2. Less than 50% stenosis=ICA PSV < 125 cm/s: ratio < 2.0: ICA EDV<40 cm/s. 3. 50 to 69% stenosis=ICA PSV of 125 to 230 cm/s: ration 2.0 ? 4.0: ICA EDV 40-100 cm/s. 4. Greater than 70% stenosis to near occlusion= ICA PSV > 230 cm/s: ratio > 4.0: ICA EDV > 100 cm/s. 5. Near occlusion= ICA PSV velocities may be low or undetectable: variable ratio and ICA EDV. 6. Total occlusion=unable to detect flow.
--- NOTE | 2022-04-04 14:42 | P.DS ---
Providers Date of admission: 04/03/22 00:58 Expected date of discharge: 04/04/22 Attending physician: Gilma Simeon MD Consults: 04/03/22 00:58 Consult Physician Routine Consulting Provider: Simona Pulido Consult Reason/Comments: ICA[place]clusoin Do you want consulting provider notified?: Yes Consult Physician Routine Consulting Provider: Radu Gomez Consult Reason/Comments: cva Do you want consulting provider notified?: Yes 04/03/22 08:17 Consult Physician Routine Consulting Provider: Melinda Santiago Consult Reason/Comments: loss of vision left eye Do you want consulting provider notified?: Yes Primary care physician: [facility] Course: 62 year old male with DM , HLD, h/o Stroke , hypertension came in due to loss of vision in his left eye. he reports that he was feeling tired around 7 pm and went to sleep that was the last time he was seen normal , then woke up with loss of vision over his left eye. he waited for little bit at home, he had no other associated new focal neuro deficits, denies any dizziness, headache, weakness or numbness over hands or feet, denies any speech difficulties or facial asymmetry. He had close contact with confirmed COVID infection patient (his spouse) he however denied any fever , chills, chest pain or trouble breathing sore throat, cough, URI symptoms abd pain , nausea or vomiting. he denies any falls or head injury . In the ED CT of the brain showed no acute pathology , CTA head and neck showed 70% stenosis of left ICA, case discussed between ED and neurointervention , he was not a candidate for tPa due to > 4.5 hours onset of symptoms. recommendation were made to start him on aspirin and brilinta. Hid blood work was otherwise unremarkable. He was admitted, tested positive for COVID. Carotid Doppler and echocardiogram came back okay. His blood pressure was elevated on admission, this was not treated to allow permissive hypertension. Patient was seen by vascular surgery who advised doing an outpatient MRA to evaluate whether he needs coronary intervention due to the discordance between carotid Doppler and the CT angiogram. Patient was seen by ophthalmology who did not find any abnormalities that could explain the left eye vision loss. Patient was also seen by neurology who advised dual antiplatelet therapy for 21 days then treatment by single agent. High intensity statin was addded as well. His A1c was 6.8, indicating uncontrolled diabetes, invokana will be added upon discharge, he is only taking metformin at home.. Patient will need to follow up with neurology as well as vascular surgery outpatient. He will be discharged home in stable condition. TIme for discharge 35 min Patient Condition at Discharge: Serious Plan - Discharge Summary New Discharge Prescriptions: New Canagliflozin [Invokana] 100 mg PO DAILY 30 Days #30 tab Ticagrelor [Brilinta] 90 mg PO BID 20 Days #40 tab Atorvastatin [Lipitor] 80 mg PO HS 30 Days #30 tab Continue Valsartan/Hydrochlorothiazide [Valsartan-Hctz 160-25 mg Tab] 1 tab PO DAILY Metoprolol Succinate 200 mg PO DAILY metFORMIN HCL 1,000 mg PO BID Aspirin EC [Ecotrin Low Dose] 81 mg PO DAILY amLODIPine 10 mg PO DAILY Discharge Medication List Metoprolol Succinate 200 mg PO DAILY 05/14/19 [History] Valsartan/Hydrochlorothiazide [Valsartan-Hctz 160-25 mg Tab] 1 tab PO DAILY 05/14/19 [History] Aspirin EC [Ecotrin Low Dose] 81 mg PO DAILY 04/03/22 [History] amLODIPine 10 mg PO DAILY 04/03/22 [History] metFORMIN HCL 1,000 mg PO BID 04/03/22 [History] Atorvastatin [Lipitor] 80 mg PO HS 30 Days #30 tab 04/04/22 [Rx] Canagliflozin [Invokana] 100 mg PO DAILY 30 Days #30 tab 04/04/22 [Rx] Ticagrelor [Brilinta] 90 mg PO BID 20 Days #40 tab 04/04/22 [Rx] Follow up Appointment(s)/Referral(s): Abdirizak Fung MD [Primary Care Provider] - 1-2 days Simona Pulido DO [STAFF PHYSICIAN] - 1 Week Thien Kwan MD [STAFF PHYSICIAN] - 1 Week
--- NOTE | 2022-04-04 14:54 | P.PN ---
Subjective Progress Note Date: 04/04/22 Patient was seen for follow-up. Denies any changes in his vision. Still with significant deficits in the left eye. Telemetry monitoring showing sinus rhythm in the 60s. No other arrhythmia. Objective - Vital Signs Vital signs: Vital Signs Temp 98.0 F 04/04/22 09:13 Pulse 74 04/04/22 12:50 Resp 16 04/04/22 09:13 BP 148/85 04/04/22 12:50 Pulse Ox 97 04/04/22 12:50 FiO2 Intake & Output 04/03/22 04/04/22 04/04/22 18:59 06:59 18:59 Intake Total 780 Balance 780 Intake: Oral 780 Other: Voiding Method Toilet Toilet # Voids 6 - Exam Patient vision of the left eye has not improved. He has some preserved far lateral temporal peripheral vision, but has no vision in the medial side. Visual zelaya are full on the right. Patient has left APB. Muscle examination is nonfocal. Patient denies headache. - Labs CBC & Chem 7: 04/04/22 06:29 04/04/22 06:29 Labs: Abnormal Lab Results - Last 24 Hours (Table) 04/03/22 04/04/22 04/04/22 Range/Units 21:32 06:29 06:36 Glucose 143 H (74-99) mg/dL POC Glucose (mg/dL) 131 H 140 H (70-110) mg/dL C-Reactive Protein (<1.0) mg/dL HDL Cholesterol 37.70 L (40.00-60.00) mg/dL 04/04/22 04/04/22 Range/Units 11:47 13:33 Glucose (74-99) mg/dL POC Glucose (mg/dL) 146 H (70-110) mg/dL C-Reactive Protein 1.2 H (<1.0) mg/dL HDL Cholesterol (40.00-60.00) mg/dL Assessment and Plan Assessment: * Acute onset of left eye vision loss (noticed on waking up). Probable embolic from left carotid disease. Patient has left central retinal artery occlusion. CTA showed 70% stenosis with evidence of intimal flap. Carotid Doppler showed no significant stenosis. * Hypertension * Diabetes * Hyperlipidemia * X tobacco use * Acute Covid-19 infection. Plan: * Appreciate ophthalmology input. Patient has left central retinal artery occlusion. * Patient's vision in the left eye has minimally improved initially, but now has persistent deficit. * Patient started on dual antiplatelet medication with aspirin and Brilinta. * Carotid Doppler revealed no significant stenosis in either ICA. Antegrade priti w in both vertebral arteries. * Vascular surgery has seen the patient. As there is discordant findings between carotid Doppler and CTA, vascular surgery wants to follow-up patient is an outpatient with outpatient MRA of the neck. * Patient probably will benefit from left CEA because of symptomatic left ICA stenosis. Patient also has a left intimal flap noted on the CTA, which could be thrombogenic. Likewise, presence of acute Covid infection can be associated with hypercoagulable state as well. * Hemoglobin A1c 6.8 * Lipid panel with cholesterol 137, LDL 78, HDL 37 and triglycerides 106. We will decrease dose of Lipitor from 80 mg down to 40 mg daily. (Patient was not taking any statins at home). * 2-D echo revealed normal left ventricular size and systolic function with EF 55-60%. Mild mitral annular calcification and aortic sclerosis. * ESR 13, CRP 1.2 minimally elevated. * Neurologically clear. Patient to follow up with vascular surgery and ophthalmology.
[2022-04-04 15:40] VITALS: BP 152/97; PULSE 76
[2022-04-04] MEDS ORDERED: ATORVASTATIN 40 MG TAB PO SCH (21:00)
== END 2022-04-04 17:06 | disposition home or self-care (01) ==
LOC: EC 23:08 → 3SCARD 04-03 00:58 → INTOOBSV 04-03 00:58 → 3SCARD 04-03 05:19 → UNDODISIN 04-04 17:06
PROVIDERS: ADMIT Internal Medicine; ATTEND Internal Medicine
DX: I63.132 Cerebral infarction due to embolism of left carotid artery (principal); U07.1 COVID-19; H34.12 Central retinal artery occlusion, left eye; I10 Essential (primary) hypertension; E11.65 Type 2 diabetes mellitus with hyperglycemia; E11.3293 Type 2 diabetes mellitus with mild nonproliferative diabetic retinopathy without macular edema, bilateral; H05.20 Unspecified exophthalmos; E78.5 Hyperlipidemia, unspecified; Z86.73 Personal history of transient ischemic attack (TIA), and cerebral infarction without residual deficits; Z87.891 Personal history of nicotine dependence; Z79.899 Other long term (current) drug therapy; Z79.82 Long term (current) use of aspirin; Z79.84 Long term (current) use of oral hypoglycemic drugs; Z82.3 Family history of stroke; Z82.0 Family history of epilepsy and other diseases of the nervous system; Z80.6 Family history of leukemia
CPT/HCPCS: 96361 ×2; 96374; 99291; 36415 ×2; 93005; 93306; 97162; 97165; 80061; 80053 ×2; 85652; 84443; 84484; 85025 ×2; 85610; 85730; 86140; 83036; 87635; 71046; 93880; 70496; 70450; 70498; G0378 ×2; Q9967; 99285

== ENCOUNTER 2022-05-22 12:25 | Day surgery (SDC) | payer OTHER ==
[~2022-05-22 12:25] MED LIST: SODIUM CHLORIDE 0.9% 1,000 ML IV SCH
[2022-05-22 12:50] LABS: Glucose,Whole Blood 108 mg/dL (70-110)
[2022-05-22] MEDS ORDERED: TICAGRELOR 90 MG TAB PO STA (12:54)
[2022-05-22 12:56] LABS: Basophils % (A) 0 %; Eosinophils # (A) 0.1 k/uL (0-0.7); Eosinophils % (A) 1 %; HCT 46.1 % (39.0-53.0); HGB 15.5 gm/dL (13.0-17.5); Lymphocytes # (A) 2.9 k/uL (1.0-4.8); Lymphocytes % (A) 26 %; MCH 30.8 pg (25.0-35.0); MCHC 33.6 g/dL (31.0-37.0); MCV 91.7 fL (80.0-100.0); Mean Platelet Volume 9.9; Monocytes # (A) 0.7 k/uL (0-1.0); Monocytes % (A) 7 %; Neutrophils # (A) 7.2 k/uL (1.3-7.7); Neutrophils % (A) 65 %; Platelet Count 249 k/uL (150-450); RBC 5.03 m/uL (4.30-5.90); RDW 12.4 % (11.5-15.5); WBC 11.1 k/uL (3.8-10.6)
[2022-05-22 13:12] LABS: African American GFR (CKD) >90 (>60 ml/min/1.73 sqM); Anion Gap 13 mmol/L; Blood Urea Nitrogen 12 mg/dL (9-20); Calcium 8.9 mg/dL (8.4-10.2); Carbon Dioxide 30 mmol/L (22-30); Chloride 100 mmol/L (98-107); Glucose 118 mg/dL (74-99); Non-African American GFR(CKD) >90 (>60 ml/min/1.73 sqM); Sodium 143 mmol/L (137-145)
[2022-05-22] MEDS ORDERED: HEPARIN SODIUM,PORCINE 30 ML 30 ML ONE (15:28)
[2022-05-22] MEDS ORDERED: VERAPAMIL 2.5 MG/ML 2 ML AMP ONE (15:28)
[2022-05-22] MEDS ORDERED: fentaNYL (PF) 50 MCG/ML 2 ML AMP ONE (15:47)
[2022-05-22] MEDS ORDERED: fentaNYL (PF) 50 MCG/ML VIAL IV ONE (15:50)
[2022-05-22] MEDS ORDERED: MIDAZOLAM 2 MG/2 ML VIAL IV ONE (15:50)
[2022-05-22] MEDS ORDERED: LIDOCAINE 1% INJ 10MG/ML (30 ML VIAL-PF) SQ ONE (15:59)
[2022-05-22] MEDS ORDERED: VERAPAMIL SYRINGE (5 MG/10 ML) INTRAARTER ONE (16:00)
[2022-05-22] MEDS ORDERED: SODIUM CHLORIDE 0.9% 500 ML 500 ML IV ONE (16:09)
--- NOTE | 2022-05-22 16:28 | P.OP ---
Date of Procedure: 05/22/22 Description of Procedure: Preoperative diagnosis: Carotid stenosis, Discordant findings on CT and ultrasound, visual changes Postoperative diagnosis: Same Procedure: [#1 ultrasound guided left radial artery access #2 angiogram of the aortic arch] Surgeon: Simona Pulido D.O. EBL: [Less than 5 mL] IV fluids: [See records] Urine output: [Not measured] Drains: [None] Complications: [None immediately apparent] Condition: [Stable to recovery] Operative indication and findings: [The patient is a 62-year-old male who was previously diagnosed with Covid and had some visual disturbances and found to have retinal artery occlusion. He underwent imaging which was discordant, ultrasound showed no evidence of significant stenosis while the computed tomography scan reported 70% stenosis. He did not have any other findings nor has he had any strokelike symptoms previously therefore a cerebral angiogram was recommended due to the significant discordance. It was thought that he may possibly have primary occlusion of the vessel due to Covid hypercoagulable state] Procedure in detail: [The patient was brought to the operative suite and placed in supine position. The left upper extremity was prepped and draped in usual sterile fashion, a preprocedure timeout was performed, all parties were in agreement. Using ultrasound, the left radial artery was identified, the skin overlying was anesthetized with 1% lidocaine plain. Seldinger technique was used to place a 5-Vietnamese sheath. Catheters and wires were used access the ascending aorta. An aortic angiogram was performed with the II in position to fully evaluate the left carotid artery. Catheters and wires were removed. Manual pressure was obtained with the TR band. Visualized portions of the aorta is normal in course and caliber. There was portion of the brachiocephalic and right subclavian appear normal. Visualized portion of the common internal and external carotid on the right appear patent without significant disease. The right vertebral artery is patent without significant disease. On the left, the common carotid artery appears patent, there appears to be some disease at the level of the bifurcation however upon measurements all measurements show this to be less than 50%. The internal carotid artery appears patent. The vision was portion of the subclavian on the left appear patent without significant disease.] Plan - Discharge Summary Discharge Rx Participant: No New Discharge Prescriptions: No Action Valsartan/Hydrochlorothiazide [Valsartan-Hctz 160-25 mg Tab] 1 tab PO DAILY Metoprolol Succinate 200 mg PO DAILY metFORMIN HCL 1,000 mg PO BID Aspirin EC [Ecotrin Low Dose] 81 mg PO DAILY amLODIPine 10 mg PO DAILY Ticagrelor [Brilinta] 90 mg PO BID 20 Days #40 tab Atorvastatin [Lipitor] 80 mg PO HS 30 Days #30 tab Discharge Medication List Metoprolol Succinate 200 mg PO DAILY 05/14/19 [History] Valsartan/Hydrochlorothiazide [Valsartan-Hctz 160-25 mg Tab] 1 tab PO DAILY 05/14/19 [History] Aspirin EC [Ecotrin Low Dose] 81 mg PO DAILY 04/03/22 [History] amLODIPine 10 mg PO DAILY 04/03/22 [History] metFORMIN HCL 1,000 mg PO BID 04/03/22 [History] Atorvastatin [Lipitor] 80 mg PO HS 30 Days #30 tab 04/04/22 [Rx] Ticagrelor [Brilinta] 90 mg PO BID 20 Days #40 tab 04/04/22 [Rx]
[2022-05-22] MEDS ORDERED: IOPAMIDOL-250 100ML BTL INTRAARTER ONE (16:44)
[2022-05-22 19:54] VITALS: BP 159/90; PULSE 70; RESP 13; TEMP 97.8
--- NOTE | 2022-05-23 11:06 | IR ---
EXAMINATION TYPE: IR angio aortic arch DATE OF EXAM: 05/22/2022 COMPARISON: NONE HISTORY: Carotid stenosis Fluoroscopy support supplied to the referring clinician. See dictated report from vascular surgery, 1.1 minutes fluoroscopy time, 23 operative images are submitted to document procedure
== END 2022-05-22 21:36 | disposition home or self-care (01) ==
LOC: CATHCVL 12:25 → 6NMEDSUR 16:25 → CATHCVL 21:36
PROVIDERS: ATTEND Surgery
DX: I65.29 Occlusion and stenosis of unspecified carotid artery (principal); I10 Essential (primary) hypertension; E78.5 Hyperlipidemia, unspecified; Z86.73 Personal history of transient ischemic attack (TIA), and cerebral infarction without residual deficits; Z86.16 Personal history of COVID-19
CPT/HCPCS: 76937; 36221; 80048; 85025; C1769 ×3; C1894; J2250; J2001; Q9966

== ENCOUNTER → 2023-10-27 | Outpatient (CLI) | payer OTHER ==
[2023-10-27 12:09] LABS: ALT 32 U/L (10-49); AST 21 U/L (14-35); Albumin 4.5 g/dL (3.8-4.9); Alkaline Phosphatase 74 U/L (41-126); BUN/Creat Ratio 23.86 Ratio (12.00-20.00); Blood Urea Nitrogen 16.7 mg/dL (9.0-27.0); Calcium 9.8 mg/dL (8.7-10.3); Carbon Dioxide 28.9 mmol/L (21.6-31.8); Chloride 103 mmol/L (96-109); Chol/HDL Ratio 2.45 Ratio; Creatine Kinase 71 U/L (35-257); Globulin 2.5 g/dL (1.6-3.3); Glucose 126 mg/dL (70-110); LDL Cholesterol,Calculated 45.2 mg/dL (0.0-131.0); Potassium 4.1 mmol/L (3.5-5.5); Sodium 143 mmol/L (135-145); Total Bilirubin 0.4 mg/dL (0.3-1.2); VLDL Calculation 13.42 mg/dL (5.00-40.00)
== END | disposition home or self-care (01) ==
LOC: LABWHC1 07:38
PROVIDERS: ATTEND Internal Medicine
DX: E11.69 Type 2 diabetes mellitus with other specified complication (principal); E78.5 Hyperlipidemia, unspecified
CPT/HCPCS: 36415; 80053; 80061; 82550; 83036

== ENCOUNTER → 2024-07-09 | Outpatient (CLI) | payer OTHER | END | disposition home or self-care (01) | LOC: LABWHC1 08:39 | PROVIDERS: ATTEND Internal Medicine | DX: E11.69 Type 2 diabetes mellitus with other specified complication (principal) | CPT/HCPCS: 36415; 83036 ==

== ENCOUNTER → 2024-11-11 | Outpatient (CLI) | payer OTHER ==
[2024-11-11 10:28] LABS: ALT 32 U/L (10-49); AST 23 U/L (14-35); Albumin 4.6 g/dL (3.8-4.9); Albumin/Globulin Ratio 1.64 Ratio (1.60-3.17); Alkaline Phosphatase 82 U/L (41-126); Calcium 9.8 mg/dL (8.7-10.3); Carbon Dioxide 29.9 mmol/L (21.6-31.8); Chloride 104 mmol/L (96-109); Chol/HDL Ratio 2.42 Ratio; Globulin 2.8 g/dL (1.6-3.3); Glucose 125 mg/dL (70-110); LDL Cholesterol,Calculated 45.3 mg/dL (0.0-131.0); Potassium 4.3 mmol/L (3.5-5.5); Sodium 144 mmol/L (135-145); Total Bilirubin 0.6 mg/dL (0.3-1.2); Total Protein 7.4 g/dL (6.2-8.2); VLDL Calculation 13.32 mg/dL (5.00-40.00)
[2024-11-11 11:02] LABS: Microalbumin Creatinine Ratio <34 mg/g Cr (0-30); Urine Creatinine 35.5 mg/dL (39.0-259.0)
== END | disposition home or self-care (01) ==
LOC: LABWHC1 07:28
PROVIDERS: ATTEND Internal Medicine
DX: E11.69 Type 2 diabetes mellitus with other specified complication (principal); E78.5 Hyperlipidemia, unspecified
CPT/HCPCS: 36415; 80053; 80061; 82043; 82570; 83036